=== PATIENT | female | born 1945 | race Caucasian/White ===

== ENCOUNTER 2020-08-13 09:58 | Outpatient (CLI) | payer MEDICARE, BC, SELFPAY | END 2020-08-13 09:59 | disposition home or self-care (01) | LOC: ANHCOVIDVC 09:59 | DX: Z23 Encounter for immunization (principal) | CPT/HCPCS: 0001A; 91300 ==

== ENCOUNTER 2020-09-03 09:57 | Outpatient (CLI) | payer MEDICARE, BC, SELFPAY | END 2020-09-03 09:58 | disposition home or self-care (01) | LOC: ANHCOVIDVC 09:58 | DX: Z23 Encounter for immunization (principal) | CPT/HCPCS: 0002A; 91300 ==

== ENCOUNTER 2022-09-14 12:30 | Outpatient (RCR) | payer MEDICARE, BC, SELFPAY ==
--- NOTE | 2022-07-21 17:13 | PTOPEVAL1 ---
Assessment and note entered by Gwen Lincoln, PT Evaluation Information Assessment Status Evaluation Diagnosis right shoulder/arm pain Subjective Information Was putting away [place] decorations and pain really increased. Reported Pain Level Pain Score 0/10-7/10 self report Assessment PT Clinical Summary Pt presents w/ c/o right shoulder pain that has been chronic intermittent in nature with recent increase in pain in the last month. Pt is noted to use a 2w-w for mobility with moderate weight bearing through bilat UEs secondary to right hip co-morbidity. Evaluation shows significantly closed posture, (+) shoulder impingement testing, (+) empty-can for supraspinatus involvement, globally reduced active ROM of the right shoulder and pain with palpation and all testing. Pt will benefit from physical therapy to address deficits and allow improved function with less pain. Plan of Care Interventions Electrical Stimulation,Hot Pack/Cold Pack,Manual Therapy,Neuro Re-education,Patient/Caregiver Educati,Therapeutic Activities,Therapeutic Exercise,Ultrasound PT Services Indicated Yes Treatment Frequency and 2x weekly x 8 weeks Duration These treatments will address the objective and functional deficits as defined above. The patient will be advanced safely and appropriately in order for the patient to progress towards his/her prior level of function. Additional exercises will be introduced and as well as a comprehensive home exercise program upon discharge, if needed, ?to ensure carryover of functional gains achieved in the clinic. This treatment plan has been reviewed and agreement upon by the patient.
--- NOTE | 2022-08-17 17:01 | PTOPPROG ---
Assessment and note entered by Gwen Lincoln, PT Assessment Status Progress Report Diagnosis right shoulder/arm pain Subjective Information Pt reports feeling 75% improved, reports is better able to buckle her bra but is still painful with this. Still is modified in how she is dressing due to shoulders. States wants to be able to sleep better at night. Is about the middle of the night arm will start hurting again. Using the walker long distances still bothers shoulder. Is better able to do laundry, folding laundry. Assessment PT Clinical Summary Pt reports feeling 75% improved overall. Is better able to reach up and do laundry as well as put on her bra. Demo's greatly improved active ROM, improved strength, improved postural alignment. Pt cont to demo decreased functional strength, cont to complain of pain at night when sleeping, and cont to have pain with weight bearing through 2w-w during longer ambulation periods due to decreased weight bearing in right LE. Thus patient will benefit from cont therapy to focus on strengthening, decreasing reliance on (R) UE during ambulation, and reduce pain. Plan of Care Interventions Electrical Stimulation,Gait Training,Hot Pack/Cold Pack,Manual Therapy,Neuro Re-education,Patient/ Caregiver Educati,Therapeutic Activities, Therapeutic Exercise,Ultrasound PT Services Indicated Yes Treatment Frequency and cont 1x weekly x 4 weeks Duration These treatments will address the objective and functional deficits as defined above. The patient will be advanced safely and appropriately in order for the patient to progress towards his/her prior level of function. Additional exercises will be introduced and as well as a comprehensive home exercise program upon discharge, if needed, ?to ensure carryover of functional gains achieved in the clinic. This treatment plan has been reviewed and agreement upon by the patient.
--- NOTE | 2022-09-14 14:05 | PTOPDC ---
Assessment and note entered by Gwen Lincoln, PT Assessment Status Discharge Diagnosis right shoulder/arm pain Subjective Information Pt reports feeling 80% improved overall. States she is better able ot use her walker with less pain in her shoulders and hands even. States still can't reach behind for fastening of bra but has adjusted how she dresses and is able to don her clothes independently. Pain overall is better and is able to sleep better at night. Has not had to take pain pills in a long time. Reports cont to get fatigued with standing long periods. Goes to pool 3-4x weekly for exercise and activity Reported Pain Level Pain Score 0: Self Report Assessment PT Clinical Summary Pt presents stating feels 80% improved overall. Reports cont to fatigue easily overall with activity especially with standing. Shoulder pain currently ranges 0-2/10, with pt stating improve sleeping and no longer requires pain medication to control discomfort. Pt reports understanding of home exercise and education on increasing strength and function independently. Pt also verbalizes understanding of when to access MD or therapy again if needed. Thus pt is being discharged from therapy for meeting goals
== END 2022-09-14 16:01 | disposition home or self-care (01) ==
LOC: ANHHIPT 12:30
PROVIDERS: PCP Physician Assistant Medical; Visit Provider Family Medicine
DX: M79.601 Pain in right arm (principal); M25.511 Pain in right shoulder
CPT/HCPCS: 97014; 97110; 97112; 97140; 97162; G0283

== ENCOUNTER 2023-08-17 14:48 | Outpatient (CLI) | payer MEDICARE, BC, SELFPAY ==
--- NOTE | ~2023-08-17 | XR_ITS ---
EXAM: XR abdomen/kub 1V DATE: 08/17/2023 15:20 HISTORY: KIDNEY STONE . COMPARISON: None available. FINDINGS: Clear lung bases. Normal bowel gas pattern. Enlarged liver. 10 mm calcification over the r ight lower pole. Right ureteral stent, in good position. Scattered vascular calcifications. Multiple pelvic phleboliths including several large right pelvic calcifications ranging in size between 7 and 12 mm. Several of the right pelvic calcifications project along the course of the right ureter. Lumba r degenerative disc disease. Absent right femoral head and neck. Severe superior displacement of the proximal femur. IMPRESSION: Right ureteral stent in good position. Right nephrolithiasis. Multiple pelvic calcificati ons several of which may represent distal ureteral calcifications. CT of the abdomen and pelvis and/o r comparison to outside studies would be helpful for additional evaluation. Hepatomegaly. Absent right femoral head and neck. Superior right hip dislocation. Reviewed, dictated and finalized at location K. IMPRESSION: Right ureteral stent in good position. Right nephrolithiasis. Multi ple pelvic calcifications several of which may represent distal ureteral calcif ications. CT of the abdomen and pelvis and/or comparison to outside studies wou ld be helpful for additional evaluation. Hepatomegaly. Absent right femoral head and neck. Superior right hip dislocation.
== END 2023-08-17 14:49 | disposition home or self-care (01) ==
LOC: ANHIMG 14:52
PROVIDERS: PCP Family Medicine; Visit Provider Urology
DX: N20.0 Calculus of kidney (principal); R16.0 Hepatomegaly, not elsewhere classified
CPT/HCPCS: 74018

== ENCOUNTER 2023-08-24 10:19 | Outpatient (CLI) | payer MEDICARE, BC, SELFPAY ==
[2023-08-24 11:01] LABS: Bacteria Urine Rare /hpf; RBC Urine >100 /hpf (0-2); Squamous Epithelial Cell Urine Moderate /hpf (Few); WBC Urine 21-50 /hpf (0-3)
[2023-08-24 11:06] LABS: Prothrombin Time 13.1 Seconds (11.1-14.7)
[2023-08-24 11:07] LABS: Partial Thromboplastin Time 25.7 Seconds (22.3-36.8)
[2023-08-24 11:08] LABS: Appearance Urine Cloudy (Clear); Bilirubin Urine 1+ (Negative); Blood Urine 3+ (Negative); Glucose Urine UA Negative (Negative); Ketones Urine Negative (Negative); Leukocyte Esterase Ur 1+ LEU/UL (Negative); Nitrate Urine Negative (Negative); Protein Urine 3+ mg/dL (Negative); Specific Grav Ur 1.021 (1.001-1.035); Urobilinogen Urine 0.2 mg/dL (<2.0); pH Urine 5.5 (5.0-9.0)
[2023-08-24 11:15] LABS: Color Urine Light Red (Yellow)
[2023-08-24 11:16] LABS: Add Urine Microscopic? YES
== END 2023-08-24 10:20 | disposition home or self-care (01) ==
LOC: ANHSURGERY 10:24
PROVIDERS: PCP Family Medicine; Visit Provider Urology
DX: Z01.818 Encounter for other preprocedural examination (principal); N20.0 Calculus of kidney
CPT/HCPCS: 36415; 85610; 85730; 87086; 87088

== ENCOUNTER → 2023-08-26 06:00 | Day surgery (SDC) | payer MEDICARE, BC, SELFPAY ==
--- NOTE | 2023-08-23 09:32 | PC.NURSE ---
Report to the Outpatient Waiting Room, entrance under the green pavilion located off [facility], at time 1130 on date ___08/26/23____. Planned Procedure Time: __1:30 PM . Time changes happen often and if your time is changed the preop area will call you the afternoon before. - You and your visitor will be asked to self-screen and do not enter if you have any COVID symptoms. - A mask is optional within the hospital at this time. Patients may have clear liquids (water, carbonated beverages, clear teas, apple juice) until 3 hours prior to surgery( 1030 AM) with a maximum of 20 ounces. - No food from midnight until time of surgery - Infants may have breast milk until 4 hours before surgery, infant formula 6 hours prior to surgery. - Children will be allowed to drink immediately following surgery. If applicable, please bring a bottle or sippy cup to assist with drinking. Juice, water, soda, and popsicles are readily available. For infants on formula, please bring formula the day of surgery. Pacifiers are allowed. Take the following medications with a SIP of water the morning of surgery: ___LEVOTHYROXINE DO NOT STOP ANY OF YOUR OTHER PRESCRIPTION MEDICATIONS PRIOR TO SURGERY ?EXCEPT THE FOLLOWING Medications to discontinue per physician ____HOLD ALL VITAMINS AND SUPPLEMENTS 3 DAYS PRE OP 08/22/23 Please no make-up, nail romansh, hairspray, perfume, deodorant, or body powder the day of surgery. No jewelry (including any body piercings) or valuables the day of surgery, leave them at home. Please take a shower or bath the night before, or the morning of, surgery with an antibacterial soap. Wear comfortable, loose fitting clothing. Children are encouraged to wear pajamas. - Jewelry must be removed prior to entering the operating room. Rings and piercings that are not removed may be cut off. - The hospital will not accept responsibility for valuables. - Please leave all valuables, including medications, at home the day of surgery. If you are going home after surgery, a licensed racecar driver must drive you home. - NO public transportation without another adult if you receive anesthesia. - We recommend that an adult stay with you for 24 hours following discharge. - We also recommend that you do not drive, make important decision, drink alcoholic beverages, or take any drugs that were not prescribed by your health care provider for at least 24 hours after your discharge time. Follow any additional instructions given to you from your surgeon. If you or anyone in your household have experienced Covid symptoms in the past week, please notify your surgeon or the nurse liaison at the phone number below for possible testing. Telephone instructions given to ___PATIENT and asked if any additional questions and then verbalized understanding. Patient advised to call surgeon office or pre surgery nurse liaison [phone] if any additional questions.
[2023-08-23 09:45] VITALS: BMI 30.9
[2023-08-26] VITALS (8 sets, daily range): BP systolic 113–127; BP diastolic 48–70; PULSE 68–86; RESP 16–18; TEMP 36.3–36.9; O2SAT 97–98; BMI 30.3
--- NOTE | ~2023-08-26 | XR_ITS ---
EXAMINATION: XR abdomen/kub 1V INDICATION: Kidney stone TECHNIQUE: Supine views of the abdomen were obtained on 2 radiographs. COMPARISON: 08/17/2023 FINDINGS: A right internal ureteral stent is in expected position. There is a 10 mm stone of the righ t kidney lower pole. No additional urolithiasis is identified. There are multiple phleboliths in the pelvis. Again noted are absence of the right femoral head and neck with severe proximal displacement of the femur. There is severe lumbar spondylosis. IMPRESSION: 1. 10 mm stone of the right kidney lower pole. Right internal ureteral stent in expected position. Reviewed, dictated and finalized at location F.
--- NOTE | 2023-08-26 06:22 | WPDHPUPDATE1 ---
History and Physical Update Update Date/Time: 08/26/23 06:22 History and Physical has been reviewed, including an updated exam of the patient. There are NO changes in the patient's condition. Risks, benefits, and alternatives have been discussed and questions answered. Patient agrees to proceed with procedure.
--- NOTE | 2023-08-26 12:01 | WPDANESEPPF ---
Anes - Initial Pre Proc Eval Procedure: Operation Date: 08/26/23 13:30 Proposed Procedures p Right Extracorporeal Shock Wave Lithotripsy - Lon Carmen MD s Cystoscopy with Right Stent Removal - Lon Carmen MD Date/Time: 08/26/23 12:01 Surgeon: Lon Carmen MD Pre Op Diagnosis: right renal stone Patient Data Age: 77 Gender: F Height: 1.63 m Weight: 81.65 kg Allergies Allergy/AdvReac Type Severity Reaction Status Date / Time Penicillins Allergy Mild RASH Unverified 08/23/23 09:15 amoxicillin Allergy Rash Verified 08/23/23 09:15 cefdinir AdvReac itchy Verified 08/23/23 09:15 rash- no visible urticaria. Home Medications Medication Instructions Recorded Confirmed Type cholecalciferol (vitamin D3) 125 125 mcg PO DAILY 03/31/22 08/23/23 History mcg (5,000 unit) capsule cyanocobalamin (vitamin B-12) 2,000 mcg PO DAILY 03/31/22 08/23/23 History 1,000 mcg capsule levothyroxine 50 mcg tablet 50 mcg PO DAILY #90 tabs 10/13/22 08/23/23 Rx ondansetron 4 mg disintegrating 4 mg PO Q8H PRN nausea and 08/05/23 08/23/23 Rx tablet vomiting #20 tabs lisinopril 20 mg tablet 20 mg PO DAILY #90 tabs 08/11/23 08/23/23 Rx Patient hx anesthesia problems: none Family hx anesthesia problems: none Results Review: All pre-operative results and documents have been reviewed as part of the pre-operative evaluation. [facility] Past Medical History Medical History Arthritis GERD (gastroesophageal reflux disease) History of DVT (deep vein thrombosis) Hypertension Hypothyroidism Right arm pain Right shoulder pain Urolithiasis Vitamin B12 deficiency Surgical History Surgical History History of cataract surgery (~2014) History of cataract surgery (~2018) History of hip surgery (~09/2012) right History of hip surgery (~10/2012) right History of tonsillectomy and adenoidectomy (~1951) Family History Family History Father Heart disease Bladder cancer Uncontrolled hypertension Mother Glaucoma TSH deficiency Sibling Heart disease Gout Sibling No problems noted. Grandparent Cancer Grandparent Heart disease Rheumatoid arthritis Grandparent Heart disease Grandparent No problems noted. Social History Social History Smoking status: Never smoker Second hand tobacco smoke exposure: No Alcohol intake: current Alcohol use details: rare Substance use: never Substance use type: does not use Lack of Transportation: No Lack of Food: Never True Current Housing: I Have Housing Concerned About Future Housing: No Difficulty Paying Gas/Electric Bills: No Difficulty Paying for Meds: No Currently Unemployed: No Education: High School Diploma/GED Difficulty w/ Childcare or Family Care: No Living arrangements: with family Occupation/Education: retired Gender identity (if verbalized by the patient): Female Sexual Orientation (if Verbalized by the Patient): Straight or Heterosexual Spiritual care concerns: No Anes - Eval Final PreProcedure Day of Procedure 08/26/23 12:01 Patient weight: obese Heart: regular rate and rhythm Lungs: clear to auscultation Airway: Mallampati scale class II Neurological: alert and oriented Last oral intake: >/= 8 hours ASA classification: III Emergent: no Anesthetic plan: proceed Anesthesia type and monitoring: general LMA and standard monitoring Results Review: All pre-operative results and documents have been reviewed as part of the pre-operative evaluation. Informed Consent: The patient's anesthetic plan and its attendant risks and benefits were discussed with the patient/family/POA. Questions were solicite
[2023-08-26] MEDS: LACTATED RINGERS 1,000 ML 30 ML IV CONT (12:24)
[2023-08-26] MEDS: levoFLOXacin 500 MG/D5W 100 ML 500 MG/100 ML BAG 100 MG IVPB (13:06)
--- NOTE | 2023-08-26 14:02 | P.OP_ITS ---
Procedure Note - Detailed Date of Procedure 08/26/23 Pre-op Diagnosis Right renal stone Post-op Diagnosis Same Procedure Performed Cystoscopy, right ureteral stent removal, right ESWL Surgeon Lon Carmen MD Anesthesia General Description of Procedure The patient was brought to the operative suite where she was placed in the frog- legged position on the Dornier lithotripter table. Flexible cystoscopy was undertaken with a 16F flexible cystoscopy. Her urethra and bladder neck were endoscopically normal. The bladder mucosa was normal and there was a single, orthotopic ureteral orifice bilaterally. the tip of the indwelling right ureteral stent is grasped with the stent is removed with ease. The patient was then repositioned in the supine position and the focal point of the lithotriptor was placed at a 8-9mm right renal calculus. A total of 2500 shocks were delivered at a power setting of 4. There appeared to be good fragmentation of the stone. The patient tolerated the procedure well and was taken to the recovery room in good condition. Drains No Packing No Pathology None sent Complications No immediate complications Condition Stable Disposition PACU
== END | disposition home or self-care (01) ==
PROVIDERS: PCP Family Medicine; Visit Provider Urology
PROC: (CPT 50590; principal; 2023-08-26 13:30)
PROC: (CPT 52310; 2023-08-26 13:30)
DX: N20.0 Calculus of kidney (principal); I10 Essential (primary) hypertension; E03.9 Hypothyroidism, unspecified; E53.8 Deficiency of other specified B group vitamins; I25.2 Old myocardial infarction; E78.00 Pure hypercholesterolemia, unspecified; K21.9 Gastro-esophageal reflux disease without esophagitis; R01.1 Cardiac murmur, unspecified; N32.81 Overactive bladder; E66.9 Obesity, unspecified; Z68.30 Body mass index [BMI] 30.0-30.9, adult; Z79.891 Long term (current) use of opiate analgesic; Z79.82 Long term (current) use of aspirin; Z79.84 Long term (current) use of oral hypoglycemic drugs; Z86.718 Personal history of other venous thrombosis and embolism; Z85.820 Personal history of malignant melanoma of skin; Z80.52 Family history of malignant neoplasm of bladder; Z82.49 Family history of ischemic heart disease and other diseases of the circulatory system
CPT/HCPCS: 52310; 50590; 74018; J1956; J7120

== ENCOUNTER 2024-08-11 02:10 | Day surgery (SDC) | payer MEDICARE, BC, SELFPAY ==
[2024-08-03 14:22] VITALS: BMI 30.9
--- OUTSIDE RECORDS SUMMARY | 2024-08-11 02:14 | XMS_ITS | Patient Health Summary ---
Author Organization [facility] Address [address] [place] [address] Care Team Providers Care Siebel Developer Name Role Phone Don Fofana MD Primary Care Provider [phone] Note from [facility],non-owned Affiliates and Associated Physician Practices is amultiple site organization consisting of ambulatory clinics and hospital sitesin [place], [place], [place] and [place]. This disclosure is being madepursuant to the Care Everywhere program and may not contain all information available regarding this patient. Last updated 18.[facility] Allergies * Amoxicillin(Rash) -Low Criticality * Daptomycin(Rash,Fever) -Medium Criticality * Pantoprazole(Rash,Fever) -Low Criticality * Vancomycin(Rash,Fever) -Low Criticality * Rivaroxaban(Rash,Fever) -Low Criticality Medications * Be aware that medications may not be up to date on this document. Alwaysverify current medications with the patient. * lisinopril (PRINIVIL;ZESTRIL) 5 MG tablet Take 5 mg by mouth 2 times daily. * levothyroxine (TIROSINT) 125 MCG capsule Take 125 mcg by mouth daily before breakfast. * hydrocodone-acetaminophen (NORCO) 5-325 MG tablet(Started 01/01/2013) Take 1-2 Tabs by mouth every 4 hours as needed. * oxyCODONE CR 12hr (OXYCONTIN) 10 MG tablet Take 10 mg by mouth 2 times daily. * potassium chloride (KLOR-CON) 10 MEQ tablet Take 10 mEq by mouth once daily. * saccharomyces (FLORASTOR) 250 MG packet Take 250 mg by mouth 2 times daily. * metoclopramide (REGLAN) 5 MG tablet Take 5 mg by mouth every 6 hours as needed. * cyclobenzaprine (FLEXERIL) 10 MG tablet Take 10 mg by mouth every 12 hours as needed. * miconazole (MICATIN) 2 % cream Apply to affected area once daily. Groin rash * miconazole (LOTRIMIN AF) 2 % powder Apply to affected area 2 times daily. groin * senna (SENOKOT) 8.6 MG tablet Take 8.6 mg by mouth once daily. * diphenhydrAMINE (BENADRYL) 25 MG capsule Take 25 mg by mouth every 4 hours as needed. * terbinafine (LAMISIL) 1 % cream(Started 03/22/2013) Apply to affected area 2 times daily. * warfarin (COUMADIN) 2 MG tablet(Started 03/23/2013) Take 1.5 Tabs by mouth once daily. 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 Hypothyroidism 03/03/2013 Hypertension 03/03/2013 Anemia 03/03/2013 Rash 03/03/2013 Surgery, elective 12/25/2012 Social History Tobacco Use Types Packs/Day Years Used Date Smoking Tobacco: Never Alcohol Use Standard Drinks/Week Comments Yes 0 (1 standard drink = 0.6 oz pur e alcohol) Very rare Sex and Gender Information Value Date Recorded Sex Assigned at Not on file Gender Identity Not on file Sexual Orientation Not on file Last Filed Vital Signs Vital Sign Reading Time Taken Comments Blood Pressure 130/80 09/12/2013 1:04 PM CDT Pulse 94 03/24/2013 7:41 AM CDT Temperature 36.9 C (98.4 F) 03/24/2013 7:41 AM CDT Respiratory Rate 18 03/24/2013 7:41 AM CDT Oxygen Saturation 95% 03/24/2013 7:41 AM CDT Inhaled Oxygen Concentration - - Weight 76.2 kg (168 lb) 09/12/2013 1:04 PM CDT Height 163.8 cm (5' 4.5 ) 09/12/2013 1:04 PM CDT Body Mass Index 28.39 09/12/2013 1:04 PM CDT Medical Devices Implanted Type Area Safety Deposit Clerk Device Identifier Shelf Expiration Date Model / Serial / Lot Stage One Selece Hip Spacer Implanted:Qty: 1 on 12/26/2012 by Lon Amato MD at [facility] Right: Hip [id number] / / [id number] Hip Neck Length Adapter Implanted:Qty: 1 on 12/26/2012 by Lon Amato MD at [facility] Right: Hip [id number] / / Head Mold With Insert 52mm Implanted:Qty: 1 on 12/26/2012 by Lon Amato MD at [facility] Right: Hip [id number] / / Accord 2.0 Mm Cable Wih Clamp Implanted:Qty: 1 on 12/26/2012 by Lon Amato MD at [facility] 07/29/2022 [id number] / / [place] Mv Bone Cement Implanted:Qty: 4 on 12/26/2012 by Lon Amato MD at [facility] [employer] [id number] / / Procedures * XR PELVIS W RIGHT HIP 2VW(Performed 02/27/2014) * XR PELVIS 1 OR 2VW(Performed 02/27/2014) * XR PELVIS W RIGHT HIP 2VW(Performed 09/12/2013) * XR PELVIS 1 OR 2VW(Performed 09/12/2013) * C-REACTIVE PROTEIN(Performed 06/15/2013) * ERYTHROCYTE SEDIMENTATION RATE(Performed 06/15/2013) * XR PELVIS 1 OR 2VW(Performed 06/13/2013) * XR PELVIS 1 OR 2VW(Performed 04/18/2013) * XR PELVIS W RIGHT HIP 2VW(Performed 04/18/2013) * VASCULAR LAB ORDER(Performed 03/26/2013) * CARDIAC ECHOCARDIOGRAM COMPLETE ORDER(Performed 03/26/2013) * LAB RESULTS ORDER(Performed 03/26/2013) * CARDIAC RHYTHM STRIP ORDER(Performed 03/26/2013) * PT-INR(Performed 03/24/2013) * CBC W AUTO DIFFERENTIAL(Performed 03/24/2013) * TSH(Performed 03/23/2013) * CROSSMATCH RBC LEUKOREDUCED(Performed 03/23/2013) * CROSSMATCH RBC LEUKOREDUCED(Performed 03/23/2013) * ANTIBODY SCREEN(Performed 03/23/2013) * BASIC METABOLIC PANEL (CALCIUM TOTAL)(Performed 03/23/2013) * CBC W AUTO DIFFERENTIAL(Performed 03/23/2013) * PT-INR(Performed 03/23/2013) * GLUCOSE - POINT OF CARE(Performed 03/22/2013) * PT-INR(Performed 03/22/2013) * CBC W/O DIFFERENTIAL(Performed 03/21/2013) * BASIC METABOLIC PANEL (CALCIUM TOTAL)(Performed 03/21/2013) * ERYTHROCYTE SEDIMENTATION RATE(Performed 03/21/2013) * PT-INR(Performed 03/21/2013) * PT PTT PANEL(Performed 03/20/2013) * GLUCOSE - POINT OF CARE(Performed 03/20/2013) * PT PTT PANEL(Performed 03/20/2013) * CBC W AUTO DIFFERENTIAL(Performed 03/20/2013) * PT PTT PANEL(Performed 03/19/2013) * PT PTT PANEL(Performed 03/19/2013) * PT PTT PANEL(Performed 03/19/2013) * CBC W AUTO DIFFERENTIAL(Performed 03/19/2013) * PT PTT PANEL(Performed 03/18/2013) * PT PTT PANEL(Performed 03/18/2013) * PT PTT PANEL(Performed 03/18/2013) * BASIC METABOLIC PANEL (CALCIUM TOTAL)(Performed 03/18/2013) * CBC W AUTO DIFFERENTIAL(Performed 03/18/2013) * PT PTT PANEL(Performed 03/17/2013) * PT PTT PANEL(Performed 03/17/2013) * CBC W AUTO DIFFERENTIAL(Performed 03/17/2013) * XR CHEST 1VW PORTABLE(Performed 03/17/2013) Performed for Fitting and adjustment of vascular catheter * INCISION AND DRAINAGE HIP(Performed 03/16/2013) * PT PTT PANEL(Performed 03/15/2013) * CBC W AUTO DIFFERENTIAL(Performed 03/15/2013) * CBC W AUTO DIFFERENTIAL(Performed 03/15/2013) * CROSSMATCH RBC LEUKOREDUCED(Performed 03/14/2013) * CROSSMATCH RBC LEUKOREDUCED(Performed 03/14/2013) * TYPE + SCREEN PANEL(Performed 03/14/2013) * PT PTT PANEL(Performed 03/14/2013) * NURSING TRANSFUSION INSTRUCTIONS(Performed 03/14/2013) * NURSING TRANSFUSION INSTRUCTIONS(Performed 03/14/2013) * PT PTT PANEL(Performed 03/14/2013) * CBC W AUTO DIFFERENTIAL(Performed 03/14/2013) * PT PTT PANEL(Performed 03/13/2013) * CULTURE WOUND+GRAM STAIN(Performed 03/13/2013) * CULTURE ANAEROBE(Performed 03/13/2013) * INCISION AND DRAINAGE HIP(Performed 03/13/2013) * TRANSFUSE FRESH FROZEN PLASMA UNIT(S)(Performed 03/13/2013) * PREPARE FFP UNIT(S)(Performed 03/13/2013) * PREPARE FFP UNIT(S)(Performed 03/13/2013) * BASIC METABOLIC PANEL (CALCIUM TOTAL)(Performed 03/13/2013) * PT PTT PANEL(Performed 03/13/2013) * CBC W AUTO DIFFERENTIAL(Performed 03/13/2013) * PTT(Performed 03/12/2013) * PTT(Performed 03/12/2013) * PT PTT PANEL(Performed 03/12/2013) * CBC W AUTO DIFFERENTIAL(Performed 03/12/2013) * PTT(Performed 03/12/2013) * PTT(Performed 03/11/2013) * PTT(Performed 03/11/2013) * PT PTT PANEL(Performed 03/11/2013) * CBC W AUTO DIFFERENTIAL(Performed 03/11/2013) * PTT(Performed 03/11/2013) * PTT(Performed 03/10/2013) * PTT(Performed 03/10/2013) * PT PTT PANEL(Performed 03/10/2013) * CBC W AUTO DIFFERENTIAL(Performed 03/10/2013) * PTT(Performed 03/09/2013) * CULTURE WOUND+GRAM STAIN(Performed 03/09/2013) * CULTURE ANAEROBE(Performed 03/09/2013) * TYPE + SCREEN PANEL(Performed 03/09/2013) * CROSSMATCH RBC LEUKOREDUCED(Performed 03/09/2013) * CROSSMATCH RBC LEUKOREDUCED(Performed 03/09/2013) * INCISION AND DRAINAGE HIP(Performed 03/09/2013) * DIFFERENTIAL MANUAL(Performed 03/09/2013) * PT PTT PANEL(Performed 03/09/2013) * CBC W AUTO DIFFERENTIAL(Performed 03/09/2013) * PTT(Performed 03/08/2013) * PTT(Performed 03/08/2013) * PT PTT PANEL(Performed 03/08/2013) * CBC W AUTO DIFFERENTIAL(Performed 03/08/2013) * SLIDE SCAN HEMATOLOGY(Performed 03/07/2013) * PT PTT PANEL(Performed 03/07/2013) * CBC W AUTO DIFFERENTIAL(Performed 03/07/2013) * ECHOCARDIOGRAM 2D WITH DOPPLER(Performed 03/07/2013) Performed for Pain, Wound dehiscence, surgical, Infected prosthetic hip (HCC), Hypothyroidism, Hypertension, Anemia, Rash, Surgery, elective * BASIC METABOLIC PANEL (CALCIUM TOTAL)(Performed 03/07/2013) * CBC W AUTO DIFFERENTIAL(Performed 03/07/2013) * PT-INR(Performed 03/07/2013) * XR PELVIS 1 OR 2VW(Performed 03/06/2013) Performed for Wound dehiscence, surgical * CULTURE FUNGUS OTHER+FUNGUS SMEAR(Performed 03/06/2013) * CULTURE AFB+SMEAR(Performed 03/06/2013) * CULTURE ANAEROBE(Performed 03/06/2013) * CULTURE WOUND+GRAM STAIN(Performed 03/06/2013) * INCISION AND DRAINAGE LEG/KNEE(Performed 03/06/2013) * PT-INR(Performed 03/06/2013) * TRANSFUSE FRESH FROZEN PLASMA UNIT(S)(Performed 03/06/2013) * TRANSFUSE FRESH FROZEN PLASMA UNIT(S)(Performed 03/06/2013) * TRANSFUSE FRESH FROZEN PLASMA UNIT(S)(Performed 03/06/2013) * PT-INR(Performed 03/06/2013) * CROSSMATCH RBC LEUKOREDUCED(Performed 03/05/2013) * CROSSMATCH RBC LEUKOREDUCED(Performed 03/05/2013) * TYPE + SCREEN PANEL(Performed 03/05/2013) * PREPARE FFP UNIT(S)(Performed 03/05/2013) * PREPARE FFP UNIT(S)(Performed 03/05/2013) * PREPARE FFP UNIT(S)(Performed 03/05/2013) * PREPARE FFP UNIT(S)(Performed 03/05/2013) * SLIDE SCAN HEMATOLOGY(Performed 03/05/2013) * BASIC METABOLIC PANEL (CALCIUM TOTAL)(Performed 03/05/2013) * CBC W AUTO DIFFERENTIAL(Performed 03/05/2013) * PT-INR(Performed 03/05/2013) * URINE MICROSCOPIC ONLY REFLEX TO CULTURE(Performed 03/04/2013) * URINALYSIS REFLEX MICROSCOPIC REFLEX CULTURE(Performed 03/04/2013) * CULTURE URINE(Performed 03/04/2013) * VAS RIGHT VENOUS DUPLEX LE(Performed 03/04/2013) Performed for Pain, Wound dehiscence, surgical * PT-INR(Performed 03/04/2013) * TSH(Performed 03/04/2013) * TROPONIN I(Performed 03/03/2013) * CT PELVIS WWO CONTRAST(Performed 03/03/2013) Performed for Pain, Wound dehiscence, surgical * CULTURE ABSCESS+GRAM STAIN(Performed 03/03/2013) * CULTURE ANAEROBE(Performed 03/03/2013) * XR HIP RIGHT 2VW OR MORE(Performed 03/03/2013) Performed for Pain * ERYTHROCYTE SEDIMENTATION RATE(Performed 03/03/2013) * PT-INR(Performed 03/03/2013) * CBC W AUTO DIFFERENTIAL(Performed 03/03/2013) * C-REACTIVE PROTEIN(Performed 03/03/2013) * BASIC METABOLIC PANEL (CALCIUM TOTAL)(Performed 03/03/2013) * INCISION AND DRAINAGE HIP(Performed 03/03/2013) * C-REACTIVE PROTEIN SENSITIVE(Performed 01/09/2013) * ERYTHROCYTE SEDIMENTATION RATE(Performed 01/09/2013) * CBC W AUTO DIFFERENTIAL(Performed 01/09/2013) * HGB HCT PANEL(Performed 01/06/2013) * SLIDE SCAN HEMATOLOGY(Performed 01/03/2013) * CBC W AUTO DIFFERENTIAL(Performed 01/03/2013) * CARDIAC RHYTHM STRIP ORDER(Performed 01/02/2013) * COMPREHENSIVE METABOLIC PANEL(Performed 01/02/2013) * SLIDE SCAN HEMATOLOGY(Performed 01/02/2013) * C-REACTIVE PROTEIN SENSITIVE(Performed 01/02/2013) * ERYTHROCYTE SEDIMENTATION RATE(Performed 01/02/2013) * CBC W AUTO DIFFERENTIAL(Performed 01/02/2013) * URINALYSIS REFLEX TO MICROSCOPIC NO CULTURE(Performed 01/01/2013) * CULTURE URINE(Performed 01/01/2013) * C-REACTIVE PROTEIN(Performed 01/01/2013) * COMPREHENSIVE METABOLIC PANEL(Performed 01/01/2013) * ERYTHROCYTE SEDIMENTATION RATE(Performed 01/01/2013) * CBC W AUTO DIFFERENTIAL(Performed 01/01/2013) * DIFFERENTIAL MANUAL(Performed 01/01/2013) * XR KNEE RIGHT 4VW OR MORE(Performed 12/31/2012) Performed for Knee pain * BASIC METABOLIC PANEL (CALCIUM TOTAL)(Performed 12/31/2012) * CBC W AUTO DIFFERENTIAL(Performed 12/31/2012) * DIFFERENTIAL MANUAL(Performed 12/31/2012) * MAGNESIUM BLOOD(Performed 12/30/2012) * RENAL FUNCTION PANEL(Performed 12/30/2012) * CBC W AUTO DIFFERENTIAL(Performed 12/30/2012) * CULTURE WOUND+GRAM STAIN(Performed 12/29/2012) * CULTURE ANAEROBE(Performed 12/29/2012) * INCISION AND DRAINAGE HIP(Performed 12/29/2012) * MAGNESIUM BLOOD(Performed 12/29/2012) * COMPREHENSIVE METABOLIC PANEL(Performed 12/29/2012) * CBC W AUTO DIFFERENTIAL(Performed 12/29/2012) * HGB HCT PANEL(Performed 12/28/2012) * TRANSFUSE RED BLOOD CELL LEUKOREDUCED UNIT(S)(Performed 12/28/2012) * CROSSMATCH RBC LEUKOREDUCED(Performed 12/28/2012) * CROSSMATCH RBC LEUKOREDUCED(Performed 12/28/2012) * HGB HCT PANEL(Performed 12/28/2012) * TYPE + SCREEN PANEL(Performed 12/28/2012) * CROSSMATCH RBC LEUKOREDUCED(Performed 12/28/2012) * BLOOD TYPE VERIFICATION(Performed 12/28/2012) * COMPREHENSIVE METABOLIC PANEL(Performed 12/28/2012) * CBC W AUTO DIFFERENTIAL(Performed 12/28/2012) * SLIDE SCAN HEMATOLOGY(Performed 12/28/2012) * XR CHEST 1VW(Performed 12/27/2012) Performed for Status post PICC central line placement * BASIC METABOLIC PANEL (CALCIUM TOTAL)(Performed 12/27/2012) * CORTISOL BLOOD(Performed 12/27/2012) * SLIDE SCAN HEMATOLOGY(Performed 12/27/2012) * MAGNESIUM BLOOD(Performed 12/27/2012) * CBC W AUTO DIFFERENTIAL(Performed 12/27/2012) * XR PELVIS 1 OR 2VW(Performed 12/26/2012) Performed for History of total hip arthroplasty * CULTURE WOUND+GRAM STAIN(Performed 12/26/2012) Performed for Surgery, elective * CULTURE ANAEROBE(Performed 12/26/2012) Performed for Surgery, elective * REMOVAL HARDWARE HIP(Performed 12/26/2012) Performed for Infection and inflammatory reaction due to internal joint prosthesis (HCC) * EKG 12-LEAD(Performed 12/26/2012) Performed for Surgery, elective * SLIDE SCAN HEMATOLOGY(Performed 12/26/2012) * TSH(Performed 12/26/2012) * COMPREHENSIVE METABOLIC PANEL(Performed 12/26/2012) * PT-INR(Performed 12/26/2012) * CBC W AUTO DIFFERENTIAL(Performed 12/26/2012) * CULTURE VRE(Performed 12/25/2012) * CULTURE MRSA(Performed 12/25/2012) * PT-INR(Performed 12/25/2012) * CBC W AUTO DIFFERENTIAL(Performed 12/25/2012) * MAGNESIUM BLOOD(Performed 12/25/2012) * CULTURE BLOOD(Performed 12/25/2012) * CULTURE BLOOD(Performed 12/25/2012) * BASIC METABOLIC PANEL (CALCIUM TOTAL)(Performed 12/25/2012) * XR PELVIS 1 OR 2VW(Performed 12/20/2012) * XR PELVIS W RIGHT HIP 2VW(Performed 12/20/2012) Results * XR PELVIS W RIGHT HIP 2VW (02/27/2014 11:06 AM CDT) Only the most recent of4 resultswithin the time period is included. Anatomical Region Laterality Modality Other Impressions 02/27/2014 4:19 PM CDT Impression: 1. 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 2. Severe osteopenia of the right acetabulum, unchanged. Report dictated by Elina Correa M.D. (physical therapy resident). This report was approved by Elina Correa M.D. on 02/27/2014 4:15 PM . IDr. LOUIE MD have personally reviewed and interpreted this examination/study. This report was electronically signed by LOUIE XAVIER MD on 02/27/2014 4:19 PM . Narrative 02/27/2014 4:19 PM CDT Exam: XR PELVIS 1 OR 2 VW, XR HIP RIGHT 2+ VW Date: 02/27/2014 11:06 AM History: s/p resection R GUDELIA Comparison: Comparison is made with prior studies dated 09/12/2013 Findings: Right hip: The patient is status post removal of right total hip arthroplasty hardware. The proximal femur remains superiorly dislocated. Several calcific and ossific fragments are again seen around the acetabulum and proximal femur. The acetabulum remains osteopenic. No acute fracture is identified. Pelvis: No acute fracture or dislocation is identified. The left hip joint space is normal. The symphysis pubis and sacroiliac joints are normal. Multiple phleboliths are present in the pelvis. Procedure Note Louie Xavier MD - 09/04/2017 Exam: XR PELVIS 1 OR 2 VW, XR HIP RIGHT 2+ VW Date: 02/27/2014 11:06 AM History: s/p resection R GUDELIA Comparison: Comparison is made with prior studies dated 09/12/2013 Findings: Right hip: The patient is status post removal of right total hip arthroplastyhardware. The proximal femur remains superiorly dislocated. Severalcalcific and ossific fragments are again seen around the acetabulum andproximal femur. The acetabulum remains osteopenic. No acute fracture is identified. Pelvis: No acute fracture or dislocation is identified. The left hip joint spaceis normal. The symphysis pubis and sacroiliac joints are normal. Multiplephleboliths are present in the pelvis. IMPRESSION Impression: 1. 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 2. Severe osteopenia of the right acetabulum, unchanged. Report dictated by Elina Correa M.D. (physical therapy resident). This report was approved by Elina Correa M.D. on 02/27/2014 4:[address] LOUIE White MD have personally reviewed and interpreted thisexamination/study. This report was electronically signed by LOUIE XAVIER MD on 02/27/20144:19 PM . Lon Amato MD DIAGNOSTIC IMAGING ORDERABLES * XR PELVIS 1 OR 2VW (02/27/2014 11:06 AM CDT) Only the most recent of7 resultswithin the time period is included. Anatomical Region Laterality Modality Pelvis Other Impressions 02/27/2014 4:19 PM CDT Impression: 1. 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 2. Severe osteopenia of the right acetabulum, unchanged. Report dictated by Elina Correa M.D. (physical therapy resident). This report was approved by Elina Correa M.D. on 02/27/2014 4:[address] LOUIE White MD have personally reviewed and interpreted this examination/study. This report was electronically signed by LOUIE XAVIER MD on 02/27/2014 4:19 PM . Narrative 02/27/2014 4:19 PM CDT Exam: XR PELVIS 1 OR 2 VW, XR HIP RIGHT 2+ VW Date: 02/27/2014 11:06 AM History: s/p resection R GUDELIA Comparison: Comparison is made with prior studies dated 09/12/2013 Findings: Right hip: The patient is status post removal of right total hip arthroplasty hardware. The proximal femur remains superiorly dislocated. Several calcific and ossific fragments are again seen around the acetabulum and proximal femur. The acetabulum remains osteopenic. No acute fracture is identified. Pelvis: No acute fracture or dislocation is identified. The left hip joint space is normal. The symphysis pubis and sacroiliac joints are normal. Multiple phleboliths are present in the pelvis. Procedure Note Louie Xavier MD - 09/04/2017 Exam: XR PELVIS 1 OR 2 VW, XR HIP RIGHT 2+ VW Date: 02/27/2014 11:06 AM History: s/p resection R GUDELIA Comparison: Comparison is made with prior studies dated 09/12/2013 Findings: Right hip: The patient is status post removal of right total hip arthroplastyhardware. The proximal femur remains superiorly dislocated. Severalcalcific and ossific fragments are again seen around the acetabulum andproximal femur. The acetabulum remains osteopenic. No acute fracture is identified. Pelvis: No acute fracture or dislocation is identified. The left hip joint spaceis normal. The symphysis pubis and sacroiliac joints are normal. Multiplephleboliths are present in the pelvis. IMPRESSION Impression: 1. 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 2. Severe osteopenia of the right acetabulum, unchanged. Report dictated by Elina Correa M.D. (physical therapy resident). This report was approved by Elina Correa M.D. on 02/27/2014 4:15 PM . IDr. LOUIE MD have personally reviewed and interpreted thisexamination/study. This report was electronically signed by LOUIE XAVIER MD on 02/27/20144:19 PM . Lon Amato MD DIAGNOSTIC IMAGING ORDERABLES * C-REACTIVE PROTEIN (06/15/2013 10:00 AM MUSHROOM FARMER) Only the most recent of3 resultswithin the time period is included. C-Reactive Protein 1.0 0 - 4.9 mg/L [facility] Comment:Obtained at [facility], p.[phone], f. [phone] Venous blood specimen (specimen) 06/15/2013 10:00 AM MUSHROOM FARMER Narrative [facility] - 06/15/2013 10:00 AM MUSHROOM FARMER This order was created through External Result Entry Lon Amato MD LAB - CHEMISTRY ORD ERABLES [facility] * ERYTHROCYTE SEDIMENTATION RATE (06/15/2013 10:00 AM MUSHROOM FARMER) Only the most recent of6 resultswithin the time period is included. Erythrocyte Sedimentation Rate Westergren 23 0 - 10 mm/hr [facility] Comment:Obtained at [facility], p.[phone], f.[phone] Blood specimen (specimen) 06/15/2013 10:00 AM MUSHROOM FARMER Narrative [facility] - 06/15/2013 10:00 AM MUSHROOM FARMER This order was created through External Result Entry Lon Amato MD LAB - HEMATOLOGY OR DERABLES Performing Organization Address [facility]/ZIP Co de Phone Number [facility] * VASCULAR LAB ORDER (03/26/2013 11:41 AM CDT) Anatomical Region Laterality Modality Other Narrative 03/26/2013 11:41 AM CDT Ordered by an unspecified provider. Transcriptions Document, Scanned - 03/26/2013 11:41 AM CDT Scanned Document VASCULAR LAB ORDERAB LES * LAB RESULTS ORDER (03/26/2013 11:41 AM CDT) Narrative 03/26/2013 11:41 AM CDT Ordered by an unspecified provider. Transcriptions Document, Scanned - 03/26/2013 11:41 AM CDT Document, Scanned - 03/26/2013 11:41 AM CDT Scanned Document LAB - THERAPEUTIC DR U[facility] MONITORING ORDERABLES * CARDIAC ECHOCARDIOGRAM COMPLETE ORDER (03/26/2013 11:41 AM CDT) Narrative 03/26/2013 11:41 AM CDT Ordered by an unspecified provider. Transcriptions Document, Scanned - 03/26/2013 11:41 AM CDT Scanned Document ECHO ORDERABLES * CARDIAC RHYTHM STRIP ORDER (03/26/2013 11:41 AM CDT) Only the most recent of2 resultswithin the time period is included. Narrative 03/26/2013 11:41 AM CDT Ordered by an unspecified provider. Transcriptions Document, Scanned - 03/26/2013 11:41 AM CDT Scanned Document CARDIAC SERVICES ORD ERABLES * (ABNORMAL) PT-INR (03/24/2013 5:48 AM CDT) Only the most recent of12 resultswithin the time period is included. PT 22.2(H) 9.4 - 11.4 sec 03/24/2013 6:17 AM CDT [facility] INR 2.16(H) 0.89 - 1.08 03/24/2013 6:17 AM CDT [facility] Blood BLOOD SPECIMEN / Unknown 03/24/2013 5:48 AM CDT 03/24/2013 6:04 AM CDT Narrative [facility] - 03/24/2013 6:17 AM CDT Conventional Anticoagulant Therapy INR Reference Ranges: 2.0-3.0 Intensive Anticoagulant Therapy INR Reference Ranges: 2.5-3.5 David Robles MD LAB - COAGULATION OR DERABLES [facility] [address] [place] [address] * (ABNORMAL) CBC W AUTO DIFFERENTIAL (03/24/2013 5:48 AM CDT) Only the most recent of30 resultswithin the time period is included. WBC 6.9 4.4 - 10.7 x10^9/L 03/24/2013 6:13 AM CDT [facility] RBC 3.25(L) 3.80 - 5.20 x10^12/L 03/24/2013 6:13 AM [facility] Hemoglobin 9.4(L) 12.0 - 15.6 g/dL 03/24/2013 6:13 AM T [facility] Hematocrit 28.8(L) 35.9 - 45.5 % 03/24/2013 6:13 AM [facility] MCV 88.6 80.7 - 98.3 fl 03/24/2013 6:13 AM T [facility] MCH 28.9 26.7 - 34.0 pg 03/24/2013 6:13 AM [facility] MCHC 32.6 30.8 - 35.9 gm/dL 03/24/2013 6:13 AM [facility] Platelet Count 297 153 - 416 x10^9/L 03/24/2013 6:13 AM [facility] RDW-CV 17.3(H) 12.1 - 14.9 % 03/24/2013 6:13 AM [facility] MPV 9.1(L) 9.4 - 12.9 fl 03/24/2013 6:13 AM [facility] Neutrophils % 44.4 44.0 - 73.0 % 03/24/2013 6:13 AM [facility] Lymphocytes % 22.8 20.0 - 43.0 % 03/24/2013 6:13 AM T [facility] Monocytes % 16.7(H) 5.0 - 13.0 % 03/24/2013 6:13 AM CDT [facility] Eosinophils % 15.4(H) 0.0 - 6.0 % 03/24/2013 6:13 AM CDT [facility] Basophils % 0.4 0.0 - 2.0 % 03/24/2013 6:13 AM CDT [facility] Immature Granulocytes 0.3 0 - 1 % 03/24/2013 6:13 AM [facility] Neutrophil Absolute 3.05 2.01 - 7.14 x10^9/L 03/24/2013 6:13 AM CDT [facility] Lymphocytes Absolute 1.57 1.07 - 3.94 x10^9/L 03/24/2013 6:13 AM CDT [facility] Monocytes Absolute 1.15(H) 0.26 - 1.07 x10^9/L 03/24/2013 6:13 AM CDT [facility] Eosinophils Absolute 1.06(H) 0 - 0.47 x10^9/L 03/24/2013 6:13 AM CDT [facility] Basophils Absolute 0.03 0 - 0.08 x10^9/L 03/24/2013 6:13 AM CDT [facility] Immature Granulocytes Absolute 0.02 0.00 - 0.06 x10^9/L 03/24/2013 6:13 AM CDT [facility] nRBC Auto 0.0 /100 WBC 03/24/2013 6:13 AM CDT [facility] Blood BLOOD SPECIMEN / Unknown 03/24/2013 5:48 AM CDT 03/24/2013 6:04 AM CDT David Robles MD LAB - HEMATOLOGY ORD ERABLES Performing Organization Address City/State/[facility] Co de Phone Number [facility] [address] [place] [address] * TRANSFUSE RED BLOOD CELL UNIT(S) (03/24/2013 2:21 AM CDT) David Robles MD NURSING - BLOOD PROD TRANSFUSION * TRANSFUSE RED BLOOD CELL UNIT(S) (03/23/2013 5:40 PM CDT) David Robles MD NURSING - BLOOD PROD TRANSFUSION * TSH (03/23/2013 11:12 AM CDT) Only the most recent of3 resultswithin the time period is included. TSH 1.02 0.358 - 3.740 uIU/mL 03/23/2013 12:11 PM CDT [facility] Comment: Blood BLOOD SPECIMEN / Unknown Venipuncture / Unknown 03/23/2013 11:12 AM CDT 03/23/2013 11:32 AM CDT David Robles MD LAB - CHEMISTRY CHRISTINA MANUEL [facility] [address] [place] [address] * CROSSMATCH RBC (03/23/2013 11:11 AM CDT) Only the most recent of11 resultswithin the time period is included. Unit Donor # [id number] 03/23/2013 5:50 PM CDT [facility] Product Code E0424 03/23/2013 5:50 PM CDT [facility] Unit Description E0424 RBC, LR, -5 03/23/2013 5:50 PM CDT [facility] ABO Donor Type O 03/23/2013 5:50 PM CDT [facility] Rh Type Unit POS 03/23/2013 5:50 PM CDT [facility] Crossmatch Interpretation Compatible 03/23/2013 5:50 PM CDT [facility] Unit Status Transfused Unit 03/23/2013 5:50 PM CDT [facility] Blood Bank BLOOD SPECIMEN / Unknown Venipuncture / Unknown 03/23/2013 11:11 AM CDT 03/23/2013 11:32 AM CDT David Robles MD LAB - BLOOD BANK ORD ERABLES [facility] * BLOOD TYPE ABO+ RH PANEL (03/23/2013 11:11 AM CDT) Blood Bank BLOOD SPECIMEN / Unknown 03/23/2013 11:11 AM CDT 03/23/2013 11:32 AM CDT David Robles MD LAB - BLOOD BANK ORD ERABLES [facility] * ANTIBODY SCREEN (03/23/2013 11:11 AM CDT) [facility] Antibody Screen Negative 03/23/2013 12:50 PM CDT [facility] Blood Bank BLOOD SPECIMEN / Unknown 03/23/2013 11:11 AM CDT 03/23/2013 11:32 AM CDT David Robles MD LAB - BLOOD BANK ORD ERABLES [facility] * (ABNORMAL) BASIC METABOLIC PANEL (CALCIUM TOTAL) (03/23/2013 6:07 AM CDT) Only the most recent of10 resultswithin the time period is included. Glucose 82 74 - 106 mg/dL 03/23/2013 6:45 AM CDT [facility] Sodium 142 136 - 145 mmol/L 03/23/2013 6:45 AM CDT [facility] Potassium 4.0 3.5 - 5.1 mmol/L 03/23/2013 6:45 AM CDT [facility] Chloride 105 98 - 107 mmol/L 03/23/2013 6:45 AM CDT [facility] CO2 29 22 - 31 mmol/L 03/23/2013 6:45 AM CDT [facility] Calcium 7.8(L) 8.5 - 10.1 mg/dL 03/23/2013 6:45 AM CDT [facility] Anion Gap 8 5 - 15 mmol/L 03/23/2013 6:45 AM CDT [facility] BUN 8 7 - 21 mg/dL 03/23/2013 6:45 AM CDT [facility] Creatinine 0.61 0.50 - 1.30 mg/dL 03/23/2013 6:45 AM CDT [facility] eGFR by MDRD >60 >60 ml/min/1.7 3m2 03/23/2013 6:45 AM CDT [facility] eGFR by MDRD >60 >60 ml/min/1.7 3m2 03/23/2013 6:45 AM CDT [facility] Blood BLOOD SPECIMEN / Unknown 03/23/2013 6:07 AM CDT 03/23/2013 6:27 AM CDT David Robles MD LAB - CHEMISTRY ORDE RABEWELINA [facility] [address] [place] [address] * (ABNORMAL) GLUCOSE - POINT OF CARE (03/22/2013 9:44 PM CDT) Only the most recent of5 resultswithin the time period is included. Glucose WB/POC 116(H) 70 - 106 mg/dL 03/23/2013 5:29 AM CDT [facility] Blood BLOOD SPECIMEN / Unknown 03/22/2013 9:44 PM CDT 03/23/2013 5:29 AM CDT Narrative [facility] - 03/23/2013 5:29 AM CDT NOTIFIED CAREGIVER David Robles MD LAB - POINT OF CARE ORDERABLES Performing Organization Address City/State/[facility] Co de Phone Number [facility] [address] [place] [address] * (ABNORMAL) CBC W/O DIFFERENTIAL (03/21/2013 11:07 AM CDT) Pathologist [facility] WBC 8.0 4.4 - 10.7 x10^9/L 03/21/2013 11:41 AM [facility] RBC 2.98(L) 3.80 - 5.20 x10^12/L 03/21/2013 11:41 AM [facility] Hemoglobin 8.2(L) 12.0 - 15.6 g/dL 03/21/2013 11:41 AM [facility] Hematocrit 26.1(L) 35.9 - 45.5 % 03/21/2013 11:41 AM [facility] MCV 87.6 80.7 - 98.3 fl 03/21/2013 11:41 AM [facility] MCH 27.5 26.7 - 34.0 pg 03/21/2013 11:41 AM [facility] MCHC 31.4 30.8 - 35.9 gm/dL 03/21/2013 11:41 AM [facility] Platelet Count 347 153 - 416 x10^9/L 03/21/2013 11:41 AM [facility] RDW-CV 18.6(H) 12.1 - 14.9 % 03/21/2013 11:41 AM [facility] MPV 8.9(L) 9.4 - 12.9 fl 03/21/2013 11:41 AM [facility] Blood BLOOD SPECIMEN / Unknown Venipuncture / Unknown 03/21/2013 11:07 AM CDT 03/21/2013 11:22 AM CDT David Robles MD LAB - HEMATOLOGY ORD ERABLES Performing Organization Address [facility] Co de Phone Number [facility] [address] [place] [address] * (ABNORMAL) PT PTT PANEL (03/20/2013 11:39 AM CDT) Only the most recent of21 resultswithin the time period is included. PT 13.1(H) 9.4 - 11.4 sec 03/20/2013 12:11 PM CDT [facility] INR 1.26(H) 0.89 - 1.08 03/20/2013 12:11 PM CDT [facility] PTT 118.1(H) 24.0 - 33.0 sec 03/20/2013 12:11 PM CDT [facility] Blood BLOOD SPECIMEN / Unknown Venipuncture / Unknown 03/20/2013 11:39 AM CDT 03/20/2013 11:43 AM CDT Narrative [facility] - 03/20/2013 12:11 PM CDT Conventional Anticoagulant Therapy INR Reference Ranges: 2.0-3.0 Intensive Anticoagulant Therapy INR Reference Ranges: 2.5-3.5 David Robles MD LAB - COAGULATION OR DERABLES Performing Organization Address [facility] de Phone Number [facility] [address] [place] [address] * XR CHEST 1VW PORTABLE (03/17/2013 1:23 PM CDT) Anatomical Region Laterality Modality Chest Radio Fluoroscop y 03/17/2013 1:25 PM CDT Impressions 03/17/2013 1:26 PM CDT PICC line as noted. Narrative 03/17/2013 1:26 PM CDT Chest x-ray single view. History: PICC line placement. A single view of the chest shows a right-sided PICC line tip projected in in the superior vena cava. Heart size is normal. Lungs are clear. Procedure Note Braulio Emmanuel MD - 03/17/2013 Chest x-ray single view. History: PICC line placement. A single view of the chest shows a right-sided PICC line tip projected in in the superior vena cava. Heart size is normal. Lungs are clear. IMPRESSION PICC line as noted. Lori Wetzel MD DIAGNOSTIC IMAGING O RDERABLES * TRANSFUSE RED BLOOD CELL UNIT(S) (03/14/2013 11:49 PM CDT) David Robles MD NURSING - BLOOD PROD TRANSFUSION * TRANSFUSE RED BLOOD CELL UNIT(S) (03/14/2013 7:02 PM CDT) Davdi Robles MD NURSING - BLOOD PROD TRANSFUSION * TYPE + SCREEN PANEL (03/14/2013 2:37 PM CDT) Only the most recent of4 resultswithin the time period is included. ABO O 03/14/2013 3:30 PM CDT [facility] Rh Type Positive 03/14/2013 3:30 PM CDT [facility] Comment:Historical blood typ e on record. Antibody Screen Negative 03/14/2013 3:30 PM CDT [facility] Blood Bank BLOOD SPECIMEN / Unknown Lab Venipuncture / Unknown 03/14/2013 2:37 PM CDT 03/14/2013 2:41 PM CDT David Robles MD LAB - BLOOD BANK ORD ERABLES [facility] * CULTURE WOUND+GRAM STAIN (03/13/2013 1:45 PM CDT) Only the most recent of5 resultswithin the time period is included. Culture No Growth 03/20/2013 10:44 AM CDT [facility] Gram Stain No organisms seen 03/20/2013 10:44 AM CDT [facility] Gram Stain Heavy Red blood cells 03/20/2013 10:44 AM CDT [facility] Gram Stain Rare White blood cells 03/20/2013 10:44 AM CDT [facility] Microbiology ENTIRE HIP REGION / Unknown Collection / Unknown 03/13/2013 1:45 PM CDT 03/13/2013 2:34 PM CDT Lon Amato MD LAB - MICROBIOLOGY ORDERABLES Performing Organization Address City/[facility]/ZIP Co de Phone Number [facility] [address] [place] [address] * CULTURE ANAEROBE (03/13/2013 1:45 PM CDT) Only the most recent of6 resultswithin the time period is included. [facility] Culture No anaerobic organisms isolated 03/20/2013 12:45 PM CDT [facility] Microbiology SPECIMEN FROM WOUND / Unknown Collection / Unknown 03/13/2013 1:45 PM CDT 03/13/2013 2:34 PM CDT Lon Amato MD LAB - MICROBIOLOGY ORDERABLES Performing Organization Address [facility] Co de Phone Number [facility] [address] [address] [place] [address] * TRANSFUSE FRESH FROZEN PLASMA UNIT(S) (03/13/2013 12:15 PM CDT) David Robles MD NURSING - BLOOD PROD TRANSFUSION * TRANSFUSE FRESH FROZEN PLASMA UNIT(S) (03/13/2013 11:13 AM CDT) David Robles MD NURSING - BLOOD PROD TRANSFUSION * PREPARE FFP UNIT(S) (03/13/2013 9:25 AM CDT) Only the most recent of6 resultswithin the time period is included. [facility] Unit Donor # [id number] 03/13/2013 4:40 PM CDT [facility] Product Code E2701 03/13/2013 4:40 PM CDT [facility] ABO Donor Type O 03/13/2013 4:40 PM CDT [facility] Rh Type Unit POS 03/13/2013 4:40 PM CDT [facility] Unit Status Transfused Unit 03/13/2013 4:40 PM CDT [facility] Unit Description E2701 Plasma, CPD,Thawed 03/13/2013 4:40 PM CDT [facility] Blood Bank BLOOD SPECIMEN / Unknown 03/13/2013 9:25 AM CDT 03/13/2013 9:37 AM CDT David Robles MD LAB - BLOOD BANK ORD ERABLES [facility] * (ABNORMAL) PTT (03/12/2013 7:07 PM CDT) Only the most recent of11 resultswithin the time period is included. PTT 50.9(H) 24.0 - 33.0 sec 03/12/2013 7:33 PM CDT [facility] Blood BLOOD SPECIMEN / Unknown Lab Venipuncture / Unknown 03/12/2013 7:07 PM CDT 03/12/2013 7:16 PM CDT David Robles MD LAB - COAGULATION OR DERABLES Performing Organization Address City/[facility] Co de Phone Number [facility] [address] [place] [address] * (ABNORMAL) DIFFERENTIAL MANUAL (03/09/2013 3:36 AM CDT) Only the most recent of3 resultswithin the time period is included. WBC Auto 10.6 4.4 - 10.7 X(10)9/L 03/09/2013 4:41 AM CDT [facility] Neutrophil % Manual 57 44 - 73 % 03/09/2013 4:41 AM CDT [facility] Lymphocytes % Manual 19(L) 20 - 43 % 03/09/2013 4:41 AM CDT [facility] Monocytes % Manual 3(L) 5 - 13 % 2012 4:41 AM CDT [facility] Eosinophils % Manual 19(H) 0 - 6 % 03/09/2013 4:41 AM CDT [facility] Atypical Lymphocyte % Manual 1(H) <=0 % 03/09/2013 4:41 AM CDT [facility] Band % Manual 1 0 - 11 % 03/09/2013 4:41 AM CDT [facility] Cells Counted 100 # cells 03/09/2013 4:41 AM CDT [facility] WBC Morph Normal 03/09/2013 4:41 AM CDT [facility] Anisocytosis 2+(A) None 03/09/2013 4:41 AM CDT [facility] Hypochromia 2+(A) None 03/09/2013 4:41 AM CDT [facility] Poikilocytosis 2+(A) None 03/09/2013 4:41 AM CDT [facility] Niko Cells 1+(A) None 03/09/2013 4:41 AM CDT [facility] Elliptocytes 1+(A) None 03/09/2013 4:41 AM CDT [facility] Blood BLOOD SPECIMEN / Unknown 03/09/2013 3:36 AM CDT 03/09/2013 4:05 AM CDT David Robles MD LAB - HEMATOLOGY ORD ERABLES Performing Organization Address City/[facility]/ZIP Co de Phone Number [facility] [address] [place] [address] * SLIDE SCAN HEMATOLOGY (03/07/2013 6:59 PM CDT) Only the most recent of7 resultswithin the time period is included. Blood BLOOD SPECIMEN / Unknown 03/07/2013 6:59 PM CDT 03/07/2013 7:31 PM CDT Narrative [facility] - 03/07/2013 8:05 PM CDT thrombocytosis David Robles MD LAB - HEMATOLOGY ORD ERABLES Performing Organization Address City/[facility] Co de Phone Number [facility] [address] [place] [id number] * TRANSFUSE RED BLOOD CELL UNIT(S) (03/07/2013 6:44 PM CDT) Macho Montoya MD NURSING - BLOOD PROD TRANSFUSION * TRANSFUSE RED BLOOD CELL UNIT(S) (03/07/2013 2:16 PM CDT) Macho Montoya MD NURSING - BLOOD PROD TRANSFUSION * ECHOCARDIOGRAM 2D WITH DOPPLER (03/07/2013 10:59 AM CDT) 03/07/2013 10:5 9 AM CDT Narrative [facility] - 03/08/2013 9:[address] [facility] [address] [place], [place] [id number] Transthoracic Echocardiogram 2D, M-mode, Doppler, and Color Doppler Patient: DEBBIE DUEÑAS MR number: [id number] Height: 64 in Weight: 172.7 lb BSA: 1.84 m Study date: 07-Mar-2013 : 1945 Age: 67 years Gender: Female Race: Allergies: AMOXICILLIN, VANCOMYCIN, RIVAROXABAN, PANTOPRAZOLE, DAPTOMYCIN Referring Physician: David Robles MD Safety Equipment Testing Specialist: Lexi Scales [facility]: Memo Escalante MD Summary: - Clinical question: - Pain, wound dehiscence, Hypothyroidism, Hypertension, Anemia - Left ventricle: - Systolic function was normal. Ejection fraction was estimated to be 65 %. - There were no regional wall motion abnormalities. - Mild septal hypertrophy. - Pulmonary arteries: - Systolic pressure was within the normal range. - Tricuspid valve: - There was trivial regurgitation. Indications: Pain, wound dehiscence, Hypothyroidism, Hypertension, Anemia Procedure: The procedure was performed at the bedside. This was a routine study. The transthoracic approach was used. The study included complete 2D imaging, M-mode, complete spectral Doppler, and color Doppler. Systolic blood pressure was 113 mmHg. Diastolic blood pressure was 68 mmHg. Left ventricle: Size was normal. Systolic function was normal. Ejection fraction was estimated to be 65 %. There were no regional wall motion abnormalities. Mild septal hypertrophy. Aortic valve: The valve was trileaflet. Leaflets exhibited normal thickness and normal cuspal separation. Doppler: There was no stenosis. There was no regurgitation. Aorta: The root exhibited normal size. Mitral valve: Valve structure was normal. There was normal leaflet separation. Doppler: The transmitral velocity was within the normal range. There was no evidence for stenosis. There was no regurgitation. Left atrium: Size was normal. Right ventricle: The size was normal. Systolic function was normal. Wall thickness was normal. Pulmonic valve: Doppler: There was no regurgitation. Pulmonary artery: Doppler: Systolic pressure was within the normal range. Tricuspid valve: There was normal leaflet separation. Doppler: The transtricuspid velocity was within the normal range. There was no evidence for tricuspid stenosis. There was trivial regurgitation. Right atrium: Size was normal. Pericardium: The pericardium was normal in appearance. System measurement tables 2D Ao Diam: 2.7 cm IVSd: 1.2 cm LVOT Diam: 2 cm LA Diam: 3.9 cm LAAs A2C: 17.5 cm2 LAAs A4C: 16.3 cm2 LAESV A-L A2C: 54.4 ml LAESV A-L A4C: 43.1 ml LAESV Index (A-L): 27.5 ml/m2 LAESV MOD A2C: 51.2 ml LAESV MOD A4C: 39.8 ml LAESV(A-L): 50.6 ml LALs A2C: 4.8 cm LVIDd: 4 cm LVIDs: 2.6 cm LVPWd: 1 cm CW AV VTI: 26.7 cm AV Vmax: 1.3 m/s AV Vmean: 0.9 m/s AV maxP.1 mmHg AV meanP.8 mmHg PV Vmax: 1 m/s PV maxP.9 mmHg PW ARVIN (VTI): 2.6 cm2 ARVIN Vmax: 2.3 cm2 LVOT VTI: 22 cm LVOT Vmax: 1 m/s LVOT Vmean: 0.7 m/s LVOT maxP.7 mmHg LVOT meanP.1 mmHg MV E/A Ratio: 0.9 MV PHT: 69.5 ms LATERAL E': 0.2 m/s LATERAL E/E': 5.2 SEPTAL E': 0.1 m/s SEPTAL E/E': 8.6 Prepared and signed by Memo Escalante MD Signed 08-Mar-2013 09:18:18 Procedure Note 03/08/2013 [place] [address] Transthoracic Echocardiogram 2D, M-mode, Doppler, and Color Doppler Patient: DEBBIE DUEÑAS MR number: [id number] Height: 64 in Weight: 172.7 lb BSA: 1.84 m Study date: 07-Mar-2013 : 1945 Age: 67 years Gender: Female Race: Allergies: AMOXICILLIN, VANCOMYCIN, RIVAROXABAN, PANTOPRAZOLE, DAPTOMYCIN Referring Physician: David Robles MD Safety Equipment Testing Specialist: Lexi Scales RDCS [facility]ician: Memo Escalante MD Summary: - Clinical question: - Pain, wound dehiscence, Hypothyroidism, Hypertension, Anemia - Left ventricle: - Systolic function was normal. Ejection fraction was estimated to be 65 %. - There were no regional wall motion abnormalities. - Mild septal hypertrophy. - Pulmonary arteries: - Systolic pressure was within the normal range. - Tricuspid valve: - There was trivial regurgitation. Indications: Pain, wound dehiscence, Hypothyroidism, Hypertension, Anemia Procedure: The procedure was performed at the bedside. This was a routine study. The transthoracic approach was used. The study included complete 2D imaging, M-mode, complete spectral Doppler, and color Doppler. Systolic blood pressure was 113 mmHg. Diastolic blood pressure was 68 mmHg. Left ventricle: Size was normal. Systolic function was normal. Ejection fraction was estimated to be 65 %. There were no regional wall motion abnormalities. Mild septal hypertrophy. Aortic valve: The valve was trileaflet. Leaflets exhibited normal thickness and normal cuspal separation. Doppler: There was no stenosis. There was no regurgitation. Aorta: The root exhibited normal size. Mitral valve: Valve structure was normal. There was normal leaflet separation. Doppler: The transmitral velocity was within the normal range. There was no evidence for stenosis. There was no regurgitation. Left atrium: Size was normal. Right ventricle: The size was normal. Systolic function was normal. Wall thickness was normal. Pulmonic valve: Doppler: There was no regurgitation. Pulmonary artery: Doppler: Systolic pressure was within the normal range. Tricuspid valve: There was normal leaflet separation. Doppler: The transtricuspid velocity was within the normal range. There was no evidence for tricuspid stenosis. There was trivial regurgitation. Right atrium: Size was normal. Pericardium: The pericardium was normal in appearance. System measurement tables 2D Ao Diam: 2.7 cm IVSd: 1.2 cm LVOT Diam: 2 cm LA Diam: 3.9 cm LAAs A2C: 17.5 cm2 LAAs A4C: 16.3 cm2 LAESV A-L A2C: 54.4 ml LAESV A-L A4C: 43.1 ml LAESV Index (A-L): 27.5 ml/m2 LAESV MOD A2C: 51.2 ml LAESV MOD A4C: 39.8 ml LAESV(A-L): 50.6 ml LALs A2C: 4.8 cm LVIDd: 4 cm LVIDs: 2.6 cm LVPWd: 1 cm CW AV VTI: 26.7 cm AV Vmax: 1.3 m/s AV Vmean: 0.9 m/s AV maxP.1 mmHg AV meanP.8 mmHg PV Vmax: 1 m/s PV maxP.9 mmHg PW ARVIN (VTI): 2.6 cm2 ARVIN Vmax: 2.3 cm2 LVOT VTI: 22 cm LVOT Vmax: 1 m/s LVOT Vmean: 0.7 m/s LVOT maxP.7 mmHg LVOT meanP.1 mmHg MV E/A Ratio: 0.9 MV PHT: 69.5 ms LATERAL E': 0.2 m/s LATERAL E/E': 5.2 SEPTAL E': 0.1 m/s SEPTAL E/E': 8.6 Prepared and signed by Memo Escalante MD Signed 08-Mar-2013 09:18:18 aDvid Robles MD ECHO ORDERABLES Performing Organization Address City/[facility]/ZIP Co de Phone Number [facility] [address] [place] [address] * CULTURE FUNGUS OTHER+FUNGUS SMEAR (03/06/2013 1:20 PM CDT) Culture No Fungus Isolated 04/03/2013 5:04 AM CDT [facility] Fungus Smear No yeast or hyphae seen 04/03/2013 5:04 AM CDT [facility] Microbiology ENTIRE HIP REGION / Unknown Collection / Unknown 03/06/2013 1:20 PM CDT 03/06/2013 2:38 PM CDT Lon Amato MD LAB - MICROBIOLOGY ORDERABLES [facility] [address] [place] [address], [facility] * CULTURE AFB+SMEAR (03/06/2013 1:20 PM CDT) Culture No Acid Fast Bacillus Isolated 04/17/2013 12:31 PM [employer]HR[employer]OM [employer] [facility] AFB Smear No Acid Fast bacilli seen 04/17/2013 12:31 PM [employer] [facility] Microbiology ENTIRE HIP REGION / Unknown Collection / Unknown 03/06/2013 1:20 PM CDT 03/06/2013 2:38 PM CDT Lon Amato MD LAB - MICROBIOLOGY ORDERABLES [facility] [address] [place] [address], [facility] * TRANSFUSE FRESH FROZEN PLASMA UNIT(S) (03/06/2013 6:11 AM CDT) David Robles MD NURSING - BLOOD PROD TRANSFUSION * TRANSFUSE FRESH FROZEN PLASMA UNIT(S) (03/06/2013 5:50 AM CDT) David Robles MD NURSING - BLOOD PROD TRANSFUSION * TRANSFUSE FRESH FROZEN PLASMA UNIT(S) (03/06/2013 5:30 AM CDT) David Robles MD NURSING - BLOOD PROD TRANSFUSION * (ABNORMAL) URINALYSIS MICROSCOPIC ONLY W/REFLEX CULTURE (03/04/2013 12:30 PM CDT) Yeast UA 1+(A) None Seen 03/04/2013 1:06 PM CDT [facility] Urine URINE SPECIMEN OBTAINED BY CLEAN CATCH PROCEDURE / Unknown 03/04/2013 12:30 PM CDT 03/04/2013 12:37 PM CDT Narrative [facility] - 03/04/2013 1:06 PM CDT No crystal seen [facility] - URINALY SIS ORDERABLES Performing Organization Address City/[facility]/ZIP Co de Phone Number [facility] [id number] [place] [address] * (ABNORMAL) URINALYSIS ROUTINE W/REFLEX TO CULTURE (03/04/2013 12:30 PM CDT) Color UA Yellow Straw, Yellow, Dark Yellow 03/04/2013 12:57 PM CDT [facility] Clarity UA Cloudy 03/04/2013 12:57 PM CDT [facility] Specific [place] UA 1.025 1.005 - 1.030 03/04/2013 12:57 PM CDT [facility] pH UA 7.0 5.0 - 8.0 03/04/2013 12:57 PM CDT [facility] Protein UA Trace(A) Negative 03/04/2013 12:57 PM CDT [facility] Blood UA Negative Negative 03/04/2013 12:57 PM CDT [facility] Leukocyte UA 2+(A) Negative 03/04/2013 12:57 PM CDT [facility] Nitrite UA Negative Negative 03/04/2013 12:57 PM CDT [facility] Glucose UA Negative Negative 03/04/2013 12:57 PM CDT [facility] Ketone UA Negative Negative 03/04/2013 12:57 PM CDT [facility] Bilirubin UA Negative Negative 03/04/2013 12:57 PM CDT [facility] Urobilinogen UA 0.2 0.1 - 1.0 EU/dL 03/04/2013 12:57 PM CDT [facility] WBC UA Auto >100(A) 0-2, 2-5 #/hpf 03/04/2013 12:57 PM CDT [facility] RBC UA Auto 0-2 0-2, 2-5 #/hpf 03/04/2013 12:57 PM CDT [facility] Epithelial Cell UA Auto 0-2 0-2, 2-5 #/hpf 03/04/2013 12:57 PM CDT [facility] Yeast UA Auto Reflex to manual(A) None seen 03/04/2013 12:57 PM CDT [facility] Hyaline Casts UA Auto 2-5(A) 0 - 2 #/lpf 03/04/2013 12:57 PM CDT [facility] Reflex Status Culture to follow 03/04/2013 12:57 PM CDT [facility] Urine URINE SPECIMEN OBTAINED BY CLEAN CATCH PROCEDURE / Unknown Collection / Unknown 03/04/2013 12:30 PM CDT 03/04/2013 12:37 PM CDT Yuliet Rosario APRN-MAINTENANCE REPRESENTATIVE LAB - URINALY SIS ORDERABLES [facility] [address] [place] [address] * (ABNORMAL) CULTURE URINE (03/04/2013 12:30 PM CDT) Only the most recent of2 resultswithin the time period is included. Culture 10,000-50,000 CFU/mL Escherichia coli(A) 03/07/2013 7:58 AM CDT [facility] Urine URINE SPECIMEN OBTAINED BY CLEAN CATCH PROCEDURE / Unknown 03/04/2013 12:30 PM CDT 03/04/2013 12:37 PM CDT Narrative Organism Antibiotic Method Susceptibility Escherichia coli Amikacin CEFERINO <=2: Susceptible Escherichia coli Ampicillin CEFERINO <=2: Susceptible Escherichia coli Ampicillin-sulbactam CEFERINO <=2: Susceptible Escherichia coli Cefazolin CEFERINO <=4: Susceptible Escherichia coli Cefepime CEFERINO <=1: Susceptible Escherichia coli Ceftriaxone CEFERINO <=1: Susceptible Escherichia coli Ciprofloxacin CEFERINO <=0.25: Susceptible Escherichia coli Extended-Spectrum Beta-Lactamase CEFERINO NEG: - Escherichia coli Gentamicin CEFERINO <=1: Susceptible Escherichia coli Meropenem CEFERINO <=0.25: Susceptible Escherichia coli Nitrofurantoin CEFERINO 32: Susceptible Escherichia coli Piperacillin-tazobactam CEFERINO <=4: Susceptible Escherichia coli Tobramycin CEFERINO <=1: Susceptible Escherichia coli Trimethoprim-sulfamethoxazole CEFERINO <=20: Susceptible Yuliet Rosario SIEBEL CONSULTANT-MAINTENANCE REPRESENTATIVE LAB - MICROBI OLOGY ORDERABLES [facility] [address] [place] [address], [facility] * VAS RIGHT VENOUS DUPLEX LE (03/04/2013 8:43 AM CDT) Anatomical Region Laterality Modality Ultrasound 03/04/2013 7:50 AM CDT Narrative Procedure Note Fab Ferguson MD - 03/05/2013 [facility] [address] [place] [address] Lower Extremity Venous Ultrasound Report Pat.Name: DEBBIE DUEÑAS Pat.ID: [id number] St.Date: 03/04/2013 Exam Time: 7:50:00 AM Study Type:LE Venous Age: 7 1945,67Y Sex: FEMALE Sonogrphr: Thelma Douglas RVT Pat. Stat.:Inpatient ICD - 9: 729.5 Pain in Extremity CPT - 4: 70243 Reason for Study:Pain -Leg, right History / Clinical:Hypertension, Limb pain at rest Procedures:Lower Extremity Venous - Right Visit ID: [id number] SUMMARY: No evidence of deep venous thrombosis was seen in the right lower extremity. FINDINGS: Procedure: Venous duplex imaging of the right lower extremity was performed using color flow and spectral Doppler analysis. The contralateral common femoral vein was also examined. Study Quality: This study is of adequate technical quality. Rt Leg: All vessels seen appear patent and compressible. There was spontaneous and phasic flow seen in all the major veins of the right lower extremity. Appropriate augmentation with distal compression. No evidence of reflux with proximal compression. The left common femoral vein demonstrated phasic and spontaneous flow. Signed 03/05/2013 10:46 AM Fab Ferguson MD Transcriptions Document, Scanned - 03/05/2013 10:47 AM CDT Meche Spears MD VASCULAR LAB ORDERAB LES * TROPONIN I (03/03/2013 6:43 PM CDT) Troponin I <0.015 0.000 - 0.049 ng/mL 03/03/2013 7:28 PM CDT [facility] Blood BLOOD SPECIMEN / Unknown Lab Venipuncture / Unknown 03/03/2013 6:43 PM CDT 03/03/2013 7:06 PM CDT Narrative [facility] - 03/03/2013 7:28 PM CDT Note: Diagnosis of myocardial infarction requires symptoms of ischemia or EKG changes of ischemia and TNI >99th of normal (0.05 ng/mL). Troponin should be drawn on initial assessment and 3-6 hours later as clinically indicated. Any condition resulting in myocardial cell damage can increase cardiac troponin levels. In addition to myocardial infarction, these include but are not limited to CHF, arrhythmia, myocarditis, and non-cardiac related causes such as pulmonary embolism, renal failure and sepsis. Yuliet Rosario SIEBEL CONSULTANT-MAINTENANCE REPRESENTATIVE LAB - BEATER LEAD RY ORDERABLES Performing Organization Address City/State/[facility] Co de Phone Number [facility] [address] [place] [address] * CT PELVIS WITH AND WITHOUT IV CONTRAST (03/03/2013 6:28 PM CDT) Anatomical Region Laterality Modality Pelvis Computed Tomogra phy 03/03/2013 7:18 PM CDT Narrative 03/03/2013 8:[address] pelvis History: Right hip pain. The patient has a right hip prosthesis. Technique: Multiple contiguous axial images of the pelvis were obtained following intravenous contrast administration. 2-D reformatted images were obtained through the right hip. There are mild erosions and mild radiolucency of the right acetabulum. Minimal periosteal reaction is present in the anterior and posterior lateral acetabulum. A right hip prosthesis is present which obscures detail of the right hip. No evidence of an acute fracture is seen. There is a fluid collection within the posterior thigh which abuts the right lesser trochanter and measures approximately 3.3 x 11 cm in greatest transverse dimensions. The adjacent vascular structures enhance normally. No adenopathy is seen. Soft tissue contents of the pelvis appear grossly normal. Edited by Naomi Vaughn on 03/03/2013 8:22 PM Procedure Note Macho Velasquez MD - 03/03/2013 CT pelvis History: Right hip pain. The patient has a right hip prosthesis. Technique: Multiple contiguous axial images of the pelvis were obtained following intravenous contrast administration. 2-D reformatted images were obtained through the right hip. There are mild erosions and mild radiolucency of the right acetabulum. Minimal periosteal reaction is present in the anterior and posterior lateral acetabulum. A right hip prosthesis is present which obscures detail of the right hip. No evidence of an acute fracture is seen. There is a fluid collection within the posterior thigh which abuts the right lesser trochanter and measures approximately 3.3 x 11 cm in greatest transverse dimensions. The adjacent vascular structures enhance normally. No adenopathy is seen. Soft tissue contents of the pelvis appear grossly normal. Edited by Naomi Vaughn on 03/03/2013 8:22 PM Meche Spears MD CT ORDERABLES * (ABNORMAL) CULTURE ABSCESS+GRAM STAIN (03/03/2013 4:41 PM CDT) Culture Light growth Staphylococcus aureus (MRSA)(A) 03/09/2013 5:56 AM CDT [facility] Gram Stain No organisms seen 013 5:56 AM CDT [facility] Gram Stain Heavy Red blood cells 03/09/2013 5:56 AM T [facility] Gram Stain Moderate White blood cells 03/09/2013 5:56 AM T [facility] Microbiology ENTIRE HIP REGION / Unknown Collection / Unknown 03/03/2013 4:41 PM CDT 03/03/2013 4:59 PM CDT Narrative [facility] - 03/09/2013 5:56 AM CDT Methicillin Resistant Staphylococci are resistant to all currently available beta-lactam antibiotics with the exception of the newer cephalosporins with anti-MRSA activity. Contact precautions required. Dr Wetzel ordered E-test for ceftaroline Eri Degroot 03/07/2013 11:25 AM Organism Antibiotic Method Susceptibility Staphylococcus aureus methicillin-resistant (MRSA) Ceftaroline 2 ug/mL: Intermediate Staphylococcus aureus methicillin-resistant (MRSA) Ciprofloxacin CEFERINO >=8: Resistant Staphylococcus aureus methicillin-resistant (MRSA) Clindamycin CEFERINO >=8: Resistant Staphylococcus aureus methicillin-resistant (MRSA) Erythromycin CEFERINO >=8: Resistant Staphylococcus aureus methicillin-resistant (MRSA) Gentamicin CEFERINO <=0.5: Susceptible Staphylococcus aureus methicillin-resistant (MRSA) Inducible Clindamycin Resistance CEFERINO NEG: - Staphylococcus aureus methicillin-resistant (MRSA) Levofloxacin CEFERINO >=8: Resistant Staphylococcus aureus methicillin-resistant (MRSA) Linezolid CEFERINO 2: Susceptible Staphylococcus aureus methicillin-resistant (MRSA) Oxacillin CEFERINO >=4: Resistant Staphylococcus aureus methicillin-resistant (MRSA) Tetracycline CEFERINO <=1: Susceptible Staphylococcus aureus methicillin-resistant (MRSA) Trimethoprim-sulfamethoxaz ole CEFERINO <=10: Susceptible Staphylococcus aureus methicillin-resistant (MRSA) Vancomycin CEFERINO <=0.5: Susceptible Lon Amato MD LAB - MICROBIOLOGY ORDERABLES [facility] [address] [place] [address], [facility] * XR HIP 2+ VW RIGHT (03/03/2013 4:26 PM CDT) Anatomical Region Laterality Modality Pelvis, Lower Extremity Radio Fl uoroscopy 03/03/2013 4:31 PM CDT Narrative 03/03/2013 4:49 PM CDT RIGHT HIP FINDINGS: Intraoperative fluoroscopy was provided for right hip aspiration. Edited by Graciela Melendez on 03/03/2013 4:31 PM Procedure Note Macho Velasquez MD - 03/03/2013 RIGHT HIP FINDINGS: Intraoperative fluoroscopy was provided for right hip aspiration. Edited by Graciela Melendez on 03/03/2013 4:31 PM Lon Amato MD DIAGNOSTIC IMAGING ORDERABLES * C-REACTIVE PROTEIN SENSITIVE (01/09/2013 6:00 AM CDT) Only the most recent of2 resultswithin the time period is included. C-Reactive Protein High Sensitivity 0.548 mg/L 01/09/2013 6:31 AM CDT [facility] Blood BLOOD SPECIMEN / Unknown 01/09/2013 6:00 AM CDT 01/09/2013 6:06 AM CDT Narrative [facility] - 01/09/2013 6:31 AM CDT C-REACTIVE PROTEIN SENSITIVE INTERPRETATION Patients with higher hs-CRP concentrations are more likely to develop stroke, myocardial infarction, and severe peripheral vascular disease. CRP is a nonspecific marker of inflammation and a variety of conditions other than atherosclerosis may cause elevated concentrations. If the first result is greater than 3.0 mg/L, recommend repeating test at least 2 weeks later in a metabolically stable state, free of infection or acute illness. The lower of the two results should be used to determine the patient's risk. C-REACTIVE PROTEIN SENSITIVE results are used to assign risk as follows: Less than 1.0 mg/L Low risk 1.0-3.0 mg/L Average risk 3.1-9.9 mg/L High risk Greater than 9.9 mg/L Very high risk (Clin Chem 2009; 55:378-84) Lopez Silva MD LAB - CHEMISTRY ORDERABLES Performing Organization Address [facility] de Phone Number [facility] [address] [place] [id number] * (ABNORMAL) HGB HCT PANEL (01/06/2013 4:50 AM CDT) Only the most recent of3 resultswithin the time period is included. Hemoglobin 7.5(L) 12.0 - 15.6 g/dL 01/06/2013 7:00 AM CDT [facility] Hematocrit 24.4(L) 35.9 - 45.5 % 01/06/2013 7:00 AM T [facility] Blood BLOOD SPECIMEN / Unknown 01/06/2013 4:50 AM CDT 01/06/2013 5:18 AM CDT Lopez Silva MD LAB - HEMATOLOG Y ORDERABLES Performing Organization Address [facility] de Phone Number [facility] [address] [place] [address] * (ABNORMAL) COMPREHENSIVE METABOLIC PANEL (01/02/2013 4:40 AM CDT) Only the most recent of5 resultswithin the time period is included. Glucose 92 74 - 106 mg/dL 01/02/2013 6:01 AM CDT [facility] Sodium 141 136 - 145 mmol/L 01/02/2013 6:01 AM CDT [facility] Potassium 3.9 3.5 - 5.1 mmol/L 01/02/2013 6:01 AM CDT [facility] Chloride 104 98 - 107 mmol/L 01/02/2013 6:01 AM CDT [facility] CO2 29 22 - 31 mmol/L 01/02/2013 6:01 AM CDT [facility] Calcium 7.9(L) 8.5 - 10.1 mg/dL 01/02/2013 6:01 AM T [facility] Anion Gap 8 5 - 15 mmol/L 01/02/2013 6:01 AM CDT [facility] BUN 21 7 - 21 mg/dL 01/02/2013 6:01 AM CDT [facility] Creatinine 0.51 0.50 - 1.30 mg/dL 01/02/2013 6:01 AM CDT [facility] eGFR by MDRD >60 >60 ml/min/1.7 3m2 01/02/2013 6:01 AM CDT [facility] eGFR by MDRD >60 >60 ml/min/1.7 3m2 01/02/2013 6:01 AM CDT [facility] Alkaline Phosphatase 99 38 - 126 U/L 01/02/2013 6:01 AM CDT [facility] ALT 32 12 - 78 U/L 01/02/2013 6:01 AM T [facility] AST 11 5 - 40 U/L 01/02/2013 6:01 AM T [facility] Protein Total 5.7(L) 6.4 - 8.2 gm/dL 01/02/2013 6:01 AM T [facility] Albumin 2.3(L) 3.4 - 5.0 gm/dL 01/02/2013 6:01 AM T [facility] Bilirubin Total 0.3 0.2 - 1.0 mg/dL 01/02/2013 6:01 AM T [facility] Blood BLOOD SPECIMEN / Unknown Venipuncture / Unknown 01/02/2013 4:40 AM CDT 01/02/2013 5:16 AM CDT Lopez Silva MD LAB - CHEMISTRY ORDERABLES Performing Organization Address City/State/[facility] Co de Phone Number [facility] [address] [place] [address] * URINALYSIS ROUTINE AUTO (01/01/2013 4:43 PM CDT) Color UA Yellow Straw, Yellow, Dark Yellow 01/01/2013 4:57 PM CDT [facility] Clarity UA Clear 01/01/2013 4:57 PM CDT [facility] Specific [place] UA 1.019 1.005 - 1.030 01/01/2013 4:57 PM CDT [facility] pH UA 7.0 5.0 - 8.0 01/01/2013 4:57 PM CDT [facility] Protein UA Negative Negative 01/01/2013 4:57 PM CDT [facility] Blood UA Negative Negative 01/01/2013 4:57 PM CDT [facility] Leukocyte UA Negative Negative 01/01/2013 4:57 PM CDT [facility] Nitrite UA Negative Negative 01/01/2013 4:57 PM CDT [facility] Glucose UA Negative Negative 01/01/2013 4:57 PM CDT [facility] Ketone UA Negative Negative 01/01/2013 4:57 PM CDT [facility] Bilirubin UA Negative Negative 01/01/2013 4:57 PM CDT [facility] Urobilinogen UA 0.2 0.1 - 1.0 EU/dL 01/01/2013 4:57 PM CDT [facility] Urine URINE SPECIMEN OBTAINED BY CLEAN CATCH PROCEDURE / Unknown Collection / Unknown 01/01/2013 4:43 PM CDT 01/01/2013 4:43 PM CDT Lopez Silva MD LAB - URINALYSI S ORDERABLES Performing Organization Address [facility] Co de Phone Number [facility] [address] [place] [address] * XR KNEE 4+ VW RIGHT (12/31/2012 1:45 PM CDT) Anatomical Region Laterality Modality Lower Extremity Radio Fluoroscop y 12/31/2012 3:05 PM CDT Impressions 12/31/2012 3:06 PM CDT Unremarkable right knee radiographs. Narrative 12/31/2012 3:06 PM CDT Right knee radiographs INDICATION: Pain behind knees since recent surgery COMPARISON: None FINDING:There is no displaced fracture or dislocation. The medial and lateral compartment of the knee are normal. Patella is unremarkable. Soft tissues are unremarkable. Procedure Note Hernesto Ferguson MD - 12/31/2012 Right knee radiographs INDICATION: Pain behind knees since recent surgery COMPARISON: None FINDING:There is no displaced fracture or dislocation. The medial and lateral compartment of the knee are normal. Patella is unremarkable. Soft tissues are unremarkable. IMPRESSION Unremarkable right knee radiographs. Luisa Pickens MD DIAGNOSTIC IMAGING O RDERABLES * MAGNESIUM BLOOD (12/30/2012 3:44 PM CDT) Only the most recent of4 resultswithin the time period is included. Magnesium 2.1 1.6 - 2.6 mg/dL 12/30/2012 4:16 PM T [facility] Blood BLOOD SPECIMEN / Unknown Venipuncture / Unknown 12/30/2012 3:44 PM CDT 12/30/2012 3:56 PM CDT Luisa Pickens MD LAB - CHEMISTRY CHRISTINA MANUEL [facility] Organization Address City/State/[facility] Co de Phone Number [facility] [address] [place] [address] * (ABNORMAL) RENAL FUNCTION PANEL (12/30/2012 4:55 AM CDT) Glucose 115(H) 74 - 106 mg/dL 12/30/2012 6:02 AM [facility] Sodium 143 136 - 145 mmol/L 12/30/2012 6:02 AM [facility] Potassium 3.5 3.5 - 5.1 mmol/L 12/30/2012 6:02 AM [facility] Chloride 109(H) 98 - 107 mmol/L 12/30/2012 6:02 AM [facility] CO2 27 22 - 31 mmol/L 12/30/2012 6:02 AM [facility] Calcium 7.2(L) 8.5 - 10.1 mg/dL 12/30/2012 6:02 AM [facility] Anion Gap 7 5 - 15 mmol/L 12/30/2012 6:02 AM [facility] BUN 18 7 - 21 mg/dL 12/30/2012 6:02 AM [facility] Creatinine 0.45(L) 0.50 - 1.30 mg/dL 12/30/2012 6:02 AM [facility] Albumin 1.6(L) 3.4 - 5.0 gm/dL 12/30/2012 6:02 AM [facility] Phosphorus 2.5 2.5 - 4.9 mg/dL 12/30/2012 6:02 AM [facility] eGFR by MDRD >60 >60 ml/min/1.7 3m2 12/30/2012 6:02 AM [facility] eGFR by MDRD >60 >60 ml/min/1.7 3m2 12/30/2012 6:02 AM CDT [facility] Blood BLOOD SPECIMEN / Unknown Venipuncture / Unknown 12/30/2012 4:55 AM CDT 12/30/2012 5:21 AM CDT Lyndsey Blanca MD LAB - CHEMISTR Y ORDERABLES [facility] [address] [place] [address] * BLOOD TYPE VERIFICATION (12/28/2012 4:15 AM CDT) ABO O 12/28/2012 8:10 AM CDT [facility] Rh Type Positive 12/28/2012 8:10 AM CDT [facility] Blood Bank BLOOD SPECIMEN / Unknown 12/28/2012 4:15 AM CDT 12/28/2012 7:35 AM CDT David Robles MD LAB - BLOOD BANK ORD ERABLES [facility] * XR CHEST PA OR AP (12/27/2012 3:12 PM CDT) Anatomical Region Laterality Modality Chest Radio Fluoroscop y 12/27/2012 3:16 PM CDT Impressions 12/27/2012 3:17 PM CDT New right PICC with tip in the cavoatrial junction. No pneumothorax. Narrative 12/27/2012 3:17 PM CDT XR CHEST PA OR AP*[id number] INDICATION: PICC placement COMPARISON: None FINDINGS: The cardiomediastinal silhouette is normal. New right PICC with tip at cavoatrial junction. There is no pneumothorax or pleural effusion. No consolidation or pulmonary edema is present. Osseous structures are unremarkable. Procedure Note Hernesto Ferguson MD - 12/27/2012 XR CHEST PA OR AP*[id number] INDICATION: PICC placement COMPARISON: None FINDINGS: The cardiomediastinal silhouette is normal. New right PICC with tip at cavoatrial junction. There is no pneumothorax or pleural effusion. No consolidation or pulmonary edema is present. Osseous structures are unremarkable. IMPRESSION New right PICC with tip in the cavoatrial junction. No pneumothorax. Jyoti Johnson Yobany DO DIAGNOSTIC IMAGING O RDERABLES * (ABNORMAL) CORTISOL BLOOD (12/27/2012 6:56 AM CDT) Cortisol 24.86(H) 3.1 - 22.4 ug/dL 12/27/2012 9:01 AM CDT [facility] Blood BLOOD SPECIMEN / Unknown Lab Venipuncture / Unknown 12/27/2012 6:56 AM CDT 12/27/2012 7:03 AM CDT Jose Leos MD LAB - CHEMISTRY ORDERABLES Performing Organization Address [facility] Co de Phone Number [facility] [address] [place] [address] * EKG 12-LEAD (12/26/2012 11:03 AM CDT) Ventricular Rate 92 BPM [facility] Atrial Rate 92 BPM [facility] P-R Interval 136 ms [facility] QRS Duration ms 70 ms [facility] Q-T Interval ms 346 ms [facility] QTC Calculation (Bezet) 427 ms [facility] Calculated P [place] 63 degrees [facility] Calculated R [place] -7 degrees [facility] Calculated T [place] 46 degrees [facility] Interpretation EKG NORMAL SINUS RHYTHM POSSIBLE LEFT ATRIAL ENLARGEMENT BORDERLINE ECG Confirmed by MD JOAO, [facility] ([id number]) on 12/27/2012 7:43:21 AM [facility] 12/26/2012 11:0 3 AM CDT 12/27/2012 7:43 AM CDT Narrative [facility] - 12/27/2012 7:45 AM CDT Procedure Note Document, Scanned - 12/26/2012 3:27 PM CDT Transcriptions Document, Scanned - 12/27/2012 7:45 AM CDT Kristine Loo MD ECG ORDERABLES Performing Organization Address [facility] de Phone Number [facility] * (ABNORMAL) CULTURE VRE (12/25/2012 9:16 PM CDT) Culture Enterococcus species (VRE)(A) 12/27/2012 9:35 AM CDT [facility] Stool RECTAL SWAB / Unknown Collection / Unknown 12/25/2012 9:16 PM CDT 12/25/2012 9:45 PM CDT Narrative [facility] - 12/27/2012 9:35 AM CDT For VRE, contact precautions are required. For any questions, call Infection Prevention. 12/27/2012 9:33 AM Casie Hill RN notified. Read back and acknowledged results. [facility] Kristine Loo MD LAB - MICROBIOLOGY O RDERABLES Performing Organization Address [facility] de Phone Number [facility] [address] [place] [address] * (ABNORMAL) CULTURE MRSA (12/25/2012 9:16 PM CDT) Culture Staphylococcus aureus (MRSA)(A) 12/27/2012 9:36 AM CDT [facility] Microbiology SPECIMEN FROM NASAL FOSSAE / Unknown Collection / Unknown 12/25/2012 9:16 PM CDT 12/25/2012 9:45 PM CDT [facility] - 12/27/2012 9:36 AM CDT Methicillin Resistant Staphylococci are resistant to all currently available beta-lactam antibiotics with the exception of the newer cephalosporins with anti-MRSA activity. Contact precautions required. Kristine Loo MD LAB - MICROBIOLOGY O RDERABLES Performing Organization Address [facility] de Phone Number [facility] [address] [place] [address] [place] [address] * CULTURE BLOOD (12/25/2012 7:45 PM CDT) Only the most recent of2 resultswithin the time period is included. Culture No Growth 12/31/2012 1:32 PM CDT [facility] Blood PERIPHERAL BLOOD / Unknown Lab Venipuncture / Unknown 12/25/2012 7:45 PM CDT 12/25/2012 7:50 PM CDT Kristine Loo MD LAB - MICROBIOLOGY O RDERABLES [facility] [address] [place], [place] [address], [facility] Care Teams Siebel Developer Relationship Specialty Start Date End Date Don Fofana MD PCP - General Internal Medicine 12/25/12
--- OUTSIDE RECORDS SUMMARY | 2024-08-11 02:14 | XMS_ITS | Clinical Summary ---
Author Organization [facility] Address [address] [place] [address] Care Team Providers Care Programming Instructor Name Role Phone Don Fofana MD Primary Care Provider [phone] Source Comments [facility],non-owned Affiliates and Associated Physician Practices is amultiple site organization consisting of ambulatory clinics and hospital sitesin [place], [place], [place] and [place]. This disclosure is being madepursuant to the Care Everywhere program and may not contain all information available regarding this patient. Last updated 18.[facility] Lola Pirindola Allergies Active Allergy Reactions Criticality Noted Date Comments Amoxicillin Rash Low 12/23/2012 Daptomycin Rash,Fever Medium 12/26/2012 DRESS syndrome (per chart) Pantoprazole Rash,Fever Low 12/23/2012 Vancomycin Rash,Fever Low 12/23/2012 Red man syndrome Rivaroxaban Rash,Fever Low 12/23/2012 Medications * Be aware that medications may not be up to date on this document. Alwaysverify current medications with the patient. Medication Sig Dispensed Refills Start Date End Date Status lisinopril (PRINIVIL;ZESTRIL) 5 MG tablet Take 5 mg by mouth 2 times daily. Active levothyroxine (TIROSINT) 125 MCG capsule Take 125 mcg by mouth daily before breakfast. Active hydrocodone-acetamino phen (NORCO) 5-325 MG tablet Take 1-2 Tabs by mouth every 4 hours as needed. 30 Tab 0 01/01/2013 Active oxyCODONE CR 12hr (OXYCONTIN) 10 MG tablet Take 10 mg by mouth 2 times daily. Active potassium chloride (KLOR-CON) 10 MEQ tablet Take 10 mEq by mouth once daily. Active saccharomyces (FLORASTOR) 250 MG packet Take 250 mg by mouth 2 times daily. Active metoclopramide (REGLAN) 5 MG tablet Take 5 mg by mouth every 6 hours as needed. Active cyclobenzaprine (FLEXERIL) 10 MG tablet Take 10 mg by mouth every 12 hours as needed. Active miconazole (MICATIN) 2 % cream Apply to affected area once daily. Groin rash Active miconazole (LOTRIMIN AF) 2 % powder Apply to affected area 2 times daily. groin Active senna (SENOKOT) 8.6 MG tablet Take 8.6 mg by mouth once daily. Active diphenhydrAMINE (BENADRYL) 25 MG capsule Take 25 mg by mouth every 4 hours as needed. Active terbinafine (LAMISIL) 1 % cream Apply to affected area 2 times daily. 03/22/2013 Active warfarin (COUMADIN) 2 MG tablet Take 1.5 Tabs by mouth once daily. 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 Hypothyroidism 03/03/2013 Hypertension 03/03/2013 Anemia 03/03/2013 Rash 03/03/2013 Surgery, elective 12/25/2012 Family History Medical History Relation Name Comments Arthritis - Osteo Father Cancer Father bladder Hypertension Father Migraine Mother Thyroid Disease Mother Asthma Paternal Grandfather Relation Name Status Comments Father Mother Paternal Grandfather Social History Tobacco Use Types Packs/Day Years [...] Mass Index 28.39 09/12/2013 1:04 PM CDT Plan of Treatment Health Maintenance Due Date Last Done Comments BONE DENSITY TESTING 1945 MEDICARE AWV 12 MONTHS 1945 HEPATITIS C SCREENING 12/13/1963 DTAP/TDAP/TD VACCINES (1 - Tdap) 1964 PNEUMOCOCCAL VACCINE 50+ (1 of 1 - PCV) 12/18/1995 ZOSTER VACCINE (1 of 2) 12/18/1995 Respiratory Syncytial Virus (RSV) Vaccine Pt: or over 60 yrs (1 - 1-dose 75+ series) 2020 COVID-19 VACCINE (1 - 2023-2 5 season) 2024 INFLUENZA VACCINE (#1) 2024 DEPRESSION SCREENING 06/07/2024 HEPATITIS B VACCINE Aged Out No longe r eligible based on patient's age to complete this topic HIB VACCINE Aged Out No longer eligi ble based on patient's age to complete this topic HPV VACCINE Aged Out No longer eligi ble based on patient's age to complete this topic MENINGOCOCCAL (Group B) VACCINE Aged Out No longer eligible based on patient's age to complete this topic MENINGOCOCCAL VACCINE Aged Out No meagan drew eligible based on patient's age to complete this topic Medical Devices Implanted Type Area Supply Chain Associate Device Identifier Shelf Expiration Date Model / Serial / Lot Stage One Selece Hip Spacer Implanted:Qty: 1 on 12/26/2012 by Lon Amato MD at [facility] Right: Hip [id number] / / [id number] Hip Neck Length Adapter Implanted:Qty: 1 on 12/26/2012 by Lon Amato MD at [facility] Right: Hip [id number] / / Head Mold With Insert 52mm Implanted:Qty: 1 on 12/26/2012 by Lon Amato MD at [facility] Right: Hip [id number] / / Accord 2.0 Mm Cable Wih Clamp Implanted:Qty: 1 on 12/26/2012 by Lon Amato MD at [facility] 07/29/2022 [id number] / / Tully Mv Bone Cement Implanted:Qty: 4 on 12/26/2012 by Lon Amato MD at [facility] [place][note 2] [employer] [id number] / / Additional Health Concerns Infection Onset Date 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 Advance Directives Documents on File Type Date Recorded Patient Glaze Sprayer Expl anation Adv Directive/Living Will/POA 01/02/2013 6:39 PM * FULL RESUSCITATION (Latest Code Status on File) Date Activated Date Inactivated Comments 03/03/2013 5:15 PM 03/24/2013 1:01 PM * FULL RESUSCITATION Date Activated Date Inactivated Comments 03/03/2013 4:30 PM 03/03/2013 5:15 PM * FULL RESUSCITATION Date Activated Date Inactivated Comments 01/01/2013 3:36 PM 01/14/2013 12:52 PM * FULL RESUSCITATION Date Activated Date Inactivated Comments 01/01/2013 8:21 AM 01/01/2013 3:36 PM * FULL RESUSCITATION Date Activated Date Inactivated Comments 12/26/2012 8:16 PM 01/01/2013 8:21 AM Care Teams Programming Instructor Relationship Specialty Start Date End Date Don Fofana MD PCP - General Internal Medicine 12/25/12
--- OUTSIDE RECORDS SUMMARY | 2024-08-11 02:14 | XMS_ITS | Referral Summary ---
Author Organization [facility] Address [address] [place] [address] Care Team Providers Care Security System Installer Name Role Phone Don Fofana MD Primary Care Provider [phone] Source Comments [facility],non-owned Affiliates and Associated Physician Practices is amultiple site organization consisting of ambulatory clinics and hospital sitesin [place], [place], [place] and [place]. This disclosure is being madepursuant to the Care Everywhere program and may not contain all information available regarding this patient. Last updated 18.[facility] Allergies Active Allergy Reactions Criticality Noted Date [...] 09/12/2013 1:04 PM CDT Plan of Treatment Not on file Medical Devices Implanted Type Area Battery Checker Device Identifier Shelf Expiration Date Model / Serial / Lot Stage One Selece Hip Spacer Implanted:Qty: 1 on 12/26/2012 by Lon Amato MD at [facility] Right: Hip [id number] / / [id number] Hip Neck Length Adapter Implanted:Qty: 1 on 12/26/2012 by Lon Amato MD at [facility] Right: Hip [id number] / / Head Mold With Insert 52mm Implanted:Qty: 1 on 12/26/2012 by Lon Amato MD at [facility] Right: Hip [id number] / / Accord 2.0 Mm Cable Wih Clamp Implanted:Qty: 1 on 12/26/2012 by Lon Amato MD at [facility] 07/29/2022 [id number] / / Live Oak Mv Bone Cement Implanted:Qty: 4 on 12/26/2012 by Lon Amato MD at [facility] [employer] [id number] / / Additional Health Concerns Infection Onset Date 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
[2024-08-11 09:36] VITALS: BP 132/67; PULSE 96; RESP 20; TEMP 36.7; O2SAT 96
[2024-08-11 09:38] VITALS: BMI 29.2
--- NOTE | 2024-08-11 09:42 | PM.HPGS ---
History of Present Illness History of Present Illness Consent: Risks, benefits, and alternatives have been discussed and questions answered. Patient agrees to proceed with procedure. Chief complaint: Screening Narrative: Marissa Dueñas is a 78 year old female here for screening colonoscopy, last one in 2010 Review of Systems Review of Systems: All systems reviewed & are unremarkable except as noted in HPI and below PMFSH Past Medical History Medical History (Updated 08/11/24 @ 09:42 by Mitchel Sidhu MD) Colon cancer screening Urolithiasis Right arm pain Right shoulder pain GERD (gastroesophageal reflux disease) Arthritis History of DVT (deep vein thrombosis) Vitamin B12 deficiency Hypothyroidism Hypertension Surgical History Surgical History History of tonsillectomy and adenoidectomy (~1951) History of cataract surgery (~2018) History of cataract surgery (~2014) History of hip surgery (~10/2012) right History of hip surgery (~09/2012) right Family History Family History Father Heart disease Bladder cancer Uncontrolled hypertension Mother Glaucoma TSH deficiency Sibling Heart disease Gout Sibling No problems noted. Grandparent Cancer Grandparent Heart disease Rheumatoid arthritis Grandparent Heart disease Grandparent No problems noted. Social History Social History Smoking status: Never smoker Second hand tobacco smoke exposure: No Alcohol intake: current Alcohol use details: rare Substance use: never Substance use type: does not use Lack of Transportation: No Lack of Food: Never True Current Housing: I Have Housing Concerned About Future Housing: No Difficulty Paying Gas/Electric Bills: No Difficulty Paying for Meds: No Currently Unemployed: No Education: High School Diploma/GED Difficulty w/ Childcare or Family Care: No Living arrangements: with family Occupation/Education: retired Gender identity (if verbalized by the patient): Female Sexual Orientation (if Verbalized by the Patient): Straight or Heterosexual Spiritual care concerns: No Meds Home Medications and Allergies Home Medications ?Medication ?Instructions ?Recorded ?Confirmed ?Type cholecalciferol (vitamin D3) 125 125 mcg PO DAILY 03/31/22 08/11/24 History mcg (5,000 unit) capsule cyanocobalamin (vitamin B-12) 2,000 mcg PO DAILY 03/31/22 08/11/24 History 1,000 mcg capsule lisinopril 20 mg tablet 20 mg PO DAILY #90 tabs 08/11/23 04/06/24 Rx multivitamin 1 tablet PO DAILY 04/06/24 08/11/24 History lisinopril 10 mg tablet 10 mg PO BID #180 tabs 05/24/24 08/11/24 Rx calcium carbonate 600 mg PO DAILY #90 tabs 06/26/24 08/11/24 Rx levothyroxine 50 mcg tablet 50 mcg PO DAILY #90 tabs 07/31/24 08/11/24 Rx Allergies Allergy/AdvReac Type Severity Reaction Status Date / Time Penicillins Allergy Mild RASH Verified 08/11/24 09:34 amoxicillin Allergy Rash Verified 08/11/24 09:34 adhesive tape AdvReac Rash Verified 08/11/24 09:34 cefdinir AdvReac itchy Verified 08/11/24 09:34 rash- no visible urticaria. Vital Signs Vital Signs - 24 hr 08/11/24 09:36 Temperature 98.1 F Pulse Rate 96 Respiratory Rate 20 Blood Pressure 132/67 Pulse Oximetry 96 Oxygen Delivery Room Air Exam Const: General: comfortable and no acute distress HENMT: Face/Nose/Sinus: Normal nares present Eyes: General: appearance normal, both eyes and all related structures Neck: Neck: no JVD Resp: Auscultation: clear to auscultation bilaterally Cardio: Rate: regular rate Rhythm: regular rhythm GI: Inspection: non-distended GI Palp: Yes Soft to palpation Skin: General skin exam: normal color Neuro: Speech: normal speech Extrem: General: normal to inspection Psych: Mental Status: mental status grossly normal Assessment and Plan Assessment and plan (1) Colon cancer screening: Code(s): Z12.11 - Encounter for screening for malignant neoplasm of colon Status: Acute Assessment and Plan: colonoscopy
--- NOTE | 2024-08-11 09:46 | WPDANESEPPF ---
Anes - Initial Pre Proc Eval Procedure: Operation Date: 08/11/24 10:45 Proposed Procedures p Screening Colonoscopy - Mitchel Sidhu MD Date/Time: 08/11/24 09:46 Surgeon: Mitchel Sidhu MD Pre Op Diagnosis: Screening Patient Data Age: 78 Gender: F Height: 1.63 m Weight: 77.4 kg Last Vital Signs Temp 98.1 F 08/11/24 09:36 Pulse 96 08/11/24 09:36 Resp 20 08/11/24 09:36 BP 132/67 08/11/24 09:36 Pulse Ox 96 08/11/24 09:36 O2 Del Method Room Air 08/11/24 09:36 Allergies Allergy/AdvReac Type Severity Reaction Status Date / Time Penicillins Allergy Mild RASH Verified 08/11/24 09:34 amoxicillin Allergy Rash Verified 08/11/24 09:34 adhesive tape AdvReac Rash Verified 08/11/24 09:34 cefdinir AdvReac itchy Verified 08/11/24 09:34 rash- no visible urticaria. Home Medications ?Medication ?Instructions ?Recorded ?Confirmed ?Type cholecalciferol (vitamin D3) 125 125 mcg PO DAILY 03/31/22 08/11/24 History mcg (5,000 unit) capsule cyanocobalamin (vitamin B-12) 2,000 mcg PO DAILY 03/31/22 08/11/24 History 1,000 mcg capsule lisinopril 20 mg tablet 20 mg PO DAILY #90 tabs 08/11/23 04/06/24 Rx multivitamin 1 tablet PO DAILY 04/06/24 08/11/24 History lisinopril 10 mg tablet 10 mg PO BID #180 tabs 05/24/24 08/11/24 Rx calcium carbonate 600 mg PO DAILY #90 tabs 06/26/24 08/11/24 Rx levothyroxine 50 mcg tablet 50 mcg PO DAILY #90 tabs 07/31/24 08/11/24 Rx Patient hx anesthesia problems: none Family hx anesthesia problems: none Results Review: All pre-operative results and documents have been reviewed as part of the pre-operative evaluation. [facility] Past Medical History Medical History Colon cancer screening Urolithiasis Right arm pain Right shoulder pain GERD (gastroesophageal reflux disease) Arthritis History of DVT (deep vein thrombosis) Vitamin B12 deficiency Hypothyroidism Hypertension Surgical History Surgical History History of tonsillectomy and adenoidectomy (~195) History of cataract surgery (~2018) History of cataract surgery (~2014) History of hip surgery (~10/2012) right History of hip surgery (~09/2012) right Family History Family History Father Heart disease Bladder cancer Uncontrolled hypertension Mother Glaucoma TSH deficiency Sibling Heart disease Gout Sibling No problems noted. Grandparent Cancer Grandparent Heart disease Rheumatoid arthritis Grandparent Heart disease Grandparent No problems noted. Social History Social History Smoking status: Never smoker Second hand tobacco smoke exposure: No Alcohol intake: current Alcohol use details: rare Substance use: never Substance use type: does not use Lack of Transportation: No Lack of Food: Never True Current Housing: I Have Housing Concerned About Future Housing: No Difficulty Paying Gas/Electric Bills: No Difficulty Paying for Meds: No Currently Unemployed: No Education: High School Diploma/GED Difficulty w/ Childcare or Family Care: No Living arrangements: with family Occupation/Education: retired Gender identity (if verbalized by the patient): Female Sexual Orientation (if Verbalized by the Patient): Straight or Heterosexual Spiritual care concerns: No Anes - Eval Final PreProcedure Day of Procedure 08/11/24 09:46 Patient weight: obese Lungs: normal air movement Airway: Mallampati scale class II and special considerations (Upper caps. ) Neurological: alert and oriented Last oral intake: >/= 8 hours ASA classification: III Emergent: no Anesthetic plan: proceed Anesthesia type and monitoring: general GIVS and standard monitoring Results Review: All pre-operative results and documents have been reviewed as part of the pre-operative evaluation. HTN, hypothyroidism, pt walks about in her home, no cp or sob. Informed Consent: The patient's anesthetic plan and its attendant risks and benefits were discussed with the patient/family/POA. Questions were solicited and answers provided to the satisfaction of the patient/family/POA.
[2024-08-11] MEDS: LACTATED RINGERS 1,000 ML 150 ML IV CONT (09:47)
[2024-08-11 10:07] VITALS: BP 84/44; PULSE 71; RESP 16; O2SAT 95
[2024-08-11 10:14] VITALS: BP 82/49; PULSE 73; RESP 20; O2SAT 95
[2024-08-11 10:17] VITALS: BP 102/62; PULSE 66; RESP 19; O2SAT 96
[2024-08-11 10:27] VITALS: BP 117/57; PULSE 64; RESP 19; O2SAT 98
== END 2024-08-11 10:53 | disposition home or self-care (01) ==
PROVIDERS: PCP Physician Assistant Medical; Referring Provider Physician Assistant Medical; Visit Provider Internal Medicine Gastroenterology
PROC: 0DJD8ZZ Inspection of Lower Intestinal Tract, Via Natural or Artificial Opening Endoscopic (ICD-10-PCS; CPT 45378; principal; 2024-08-11 10:45)
DX: Z12.11 Encounter for screening for malignant neoplasm of colon (principal); D12.2 Benign neoplasm of ascending colon; K63.5 Polyp of colon; K64.8 Other hemorrhoids; K57.30 Diverticulosis of large intestine without perforation or abscess without bleeding; K21.9 Gastro-esophageal reflux disease without esophagitis; E53.8 Deficiency of other specified B group vitamins; E03.9 Hypothyroidism, unspecified; I10 Essential (primary) hypertension; M19.90 Unspecified osteoarthritis, unspecified site; E66.9 Obesity, unspecified; Z68.29 Body mass index [BMI] 29.0-29.9, adult; Z98.890 Other specified postprocedural states; Z86.718 Personal history of other venous thrombosis and embolism; Z80.52 Family history of malignant neoplasm of bladder; Z82.49 Family history of ischemic heart disease and other diseases of the circulatory system
CPT/HCPCS: 45380; 45385; 88305; J2704; J7120